=== PATIENT | female | born 1985 | race Caucasian/White ===

== ENCOUNTER → 2023-12-03 15:56 | Outpatient (CLI) | payer OTHER, MEDICAID, SELFPAY ==
[2023-12-03 16:41] LABS: Add Manual Diff / Slide Review NO; Basophils Absolute Auto 100 /uL (0-100); Basophils Percent Auto 0.6 % (0-2); Eosinophils Absolute Auto 100 /uL (0-450); Eosinophils Percent Auto 0.8 % (2-4); Hematocrit 40.3 % (36-46); Hemoglobin 13.6 g/dL (12.0-16.0); Lymphocytes Absolute Auto 1500 /uL (1100-4500); Lymphocytes Percent Auto 16.6 % (25-40); Mean Corpuscular HGB Conc 33.8 % (30-36); Mean Corpuscular Volume 88.7 fL (80-100); Monocytes Absolute Auto 700 /uL (0-900); Monocytes Percent Auto 7.7 % (3-14); Neutrophils Absolute Auto 6600 /uL (1500-7000); Neutrophils Percent Auto 74.3 % (50-75); Platelet Count 190 X10^3/uL (150-400); Red Blood Cell Count 4.54 X10^6/uL (4.0-5.2); Red Cell Distribution Width 13.5 % (11.6-14.8); White Blood Cell Count 8.9 X10^3/uL (4.5-11.0)
[2023-12-03 17:01] LABS: Alanine Aminotransferase 17 IU/L (<35); Albumin 4.2 g/dL (3.5-5.0); Albumin Globulin Ratio 1.3 (1.0-2.8); Alkaline Phosphatase 49 U/L (38-126); BUN Creatinine Ratio 14.5 (6-22); Bilirubin Total 0.4 mg/dL (0.2-1.3); Blood Urea Nitrogen 11 mg/dL (7-17); Calcium 9.1 mg/dL (8.4-10.2); Carbon Dioxide 21 mmol/L (22-32); Chloride 106 mmol/L (98-107); Estimated Glomerular Filt Rate > 60 mL/min (>60); Globulin 3.3 g/dL (1.7-4.1); Glucose 83 mg/dL (70-100); Potassium 3.5 mmol/L (3.4-5.1); Sodium 138 mmol/L (137-145); Total Protein 7.5 g/dL (6.3-8.2)
[2023-12-06 16:17] LABS: HEMOLYSIS < 15 (0-50)
[2023-12-06 16:18] LABS: Aspartate Aminotransferase 22 IU/L (14-36)
== END ==
LOC: LAB 15:58
PROVIDERS: PCP Family Medicine; Referring Provider Family Medicine; Visit Provider Family Medicine
DX: N83.209 Unspecified ovarian cyst, unspecified side (principal)
CPT/HCPCS: 36415; 80053; 85025

== ENCOUNTER → 2024-03-31 11:07 | Outpatient (CLI) | payer OTHER, MEDICAID, SELFPAY ==
[2024-03-31 11:52] LABS: Influenza A - CEPHEID Flu A NEGATIVE (NEGATIVE); Influenza B - CEPHEID Flu B NEGATIVE (NEGATIVE); Respiratory Syncytial Virus Negative (Negative)
[2024-03-31 11:53] LABS: COVID-19 CEPHEID 4-PLEX PCR Negative (Negative)
== END ==
PROVIDERS: PCP Family Medicine; Visit Provider Physician Assistant
DX: J34.89 Other specified disorders of nose and nasal sinuses (principal); R05.9 Cough, unspecified; R50.9 Fever, unspecified
CPT/HCPCS: 87635; 87400 ×2; 87420; 0241U; 87070

== ENCOUNTER → 2024-05-01 10:40 | Outpatient (CLI) | payer OTHER, MEDICAID, SELFPAY ==
[2024-05-02 04:54] LABS: RPR Screen Non Reactive (Non Reactive)
[2024-05-04 04:58] LABS: HIV 1 & 2 Ab/Ag 4th Gen Combo NEGATIVE (NEGATIVE); Hep C Virus Ab w/Reflex Quant NEGATIVE s/c (NEGATIVE)
== END ==
PROVIDERS: PCP Family Medicine; Referring Provider Family Medicine; Visit Provider Family Medicine
DX: R30.0 Dysuria (principal); N89.8 Other specified noninflammatory disorders of vagina; Z72.51 High risk heterosexual behavior
CPT/HCPCS: 36415; 86592; 86803; 87086; 87389; 87491; 87591

== ENCOUNTER → 2024-05-26 10:52 | Outpatient (CLI) | payer BC, OTHER, SELFPAY | PROVIDERS: PCP Family Medicine; Visit Provider Family Medicine | DX: N94.9 Unspecified condition associated with female genital organs and menstrual cycle (principal) | CPT/HCPCS: 81002; 87210 ==

== ENCOUNTER → 2024-06-09 07:44 | Outpatient (CLI) | payer BC, OTHER, MEDICAID, SELFPAY ==
--- NOTE | 2024-06-09 07:46 | DI.US.S_ITS ---
PROCEDURE: US PELVIC COMPLETE INDICATIONS: Ovarian cyst TECHNIQUE: Real-time scanning was performed of the pelvic organs, with image documentation. Additional endovaginal scanning was necessary due to incomplete visualization of the adnexal and endometrial structures by transabdominal scanning. COMPARISON: None. FINDINGS: Uterus: Uterus is anteverted and normal in size at 8.5 x 3.8 x 4.2 cm. The myometrium is homogeneous. The endometrium measures 2.5 mm combined thickness. Ovaries: The right ovary measures 8.3 x 3.8 x 5.5 cm, with a calculated ovarian volume of 90 cc. The left ovary measures 2.6 x 1.5 x 2.6 cm, with a calculated ovarian volume of 5.4 cc. Simple cysts are identified on the right measuring 2.8 x 3.6 x 3.6 cm and 5.2 x 3.3 x 4.6 cm. Other: No pathologic free abdominal or pelvic fluid. IMPRESSION: Simple right ovarian cysts. We strive to produce accurate, complete, and clear reports of imaging services. To assist us in improving patient care, this report was composed using standard report templates and voice recognition software. Therefore, it may contain abnormal punctuation, insertions and/or omissions. Occasional wrong-word or sound-alike substitutions may occur. Though we review the report and make efforts to correct it, we do recommend that the report be read carefully in proper context to recognize any text inaccuracies. Dictated by: Kelly Mark M.D. on 06/09/2024 at 14:07 Approved by: Kelly Mark M.D. on 06/09/2024 at 14:07
== END ==
PROVIDERS: PCP Family Medicine; Referring Provider Family Medicine; Visit Provider Family Medicine
DX: N83.291 Other ovarian cyst, right side (principal)
CPT/HCPCS: 76856

== ENCOUNTER 2024-06-28 17:11 | Emergency (ER) | payer BC, OTHER, MEDICAID, SELFPAY ==
[2024-06-28 17:24] VITALS: BP 123/71; PULSE 96; RESP 16; TEMP 36.9; O2SAT 100; BMI 24.2
[2024-06-28 18:19] LABS: Bacteria Urine None Seen; Culture Indicated Urine Cult Not Indicated; RBC Urine 0-1/HPF (0-5/HPF); Squamous Epithelial Cell Urine None Seen (0-5/HPF); Urine Volume 10mL (spun); WBC Urine 0-1/HPF (0-5/HPF)
[2024-06-28 18:21] LABS: Alanine Aminotransferase 14 IU/L (<35); Albumin Globulin Ratio 1.3 (1.0-2.8); Alkaline Phosphatase 46 U/L (38-126); Aspartate Aminotransferase 20 IU/L (14-36); BUN Creatinine Ratio 13.7 (6-22); Bilirubin Total 0.3 mg/dL (0.2-1.3); Blood Urea Nitrogen 13 mg/dL (7-17); Calcium 8.7 mg/dL (8.4-10.2); Carbon Dioxide 22 mmol/L (22-32); Chloride 110 mmol/L (98-107); Estimated Glomerular Filt Rate > 60 mL/min (>60); Globulin 3.1 g/dL (1.7-4.1); Glucose 66 mg/dL (70-100); HEMOLYSIS < 15 (0-50); Lipase 133 U/L (23-300); Potassium 3.7 mmol/L (3.4-5.1); Sodium 138 mmol/L (137-145); Total Protein 7.1 g/dL (6.3-8.2)
[2024-06-28 18:23] LABS: Add Manual Diff / Slide Review NO; Basophils Absolute Auto 100 /uL (0-100); Basophils Percent Auto 0.8 % (0-2); Eosinophils Absolute Auto 100 /uL (0-450); Eosinophils Percent Auto 1.1 % (2-4); Hemoglobin 12.4 g/dL (12.0-16.0); Lymphocytes Absolute Auto 1600 /uL (1100-4500); Mean Corpuscular HGB Conc 33.5 % (30-36); Mean Corpuscular Hemoglobin 29.9 PG (26-34); Mean Corpuscular Volume 89.4 fL (80-100); Monocytes Absolute Auto 500 /uL (0-900); Monocytes Percent Auto 8.3 % (3-14); Neutrophils Absolute Auto 4100 /uL (1500-7000); Neutrophils Percent Auto 64.8 % (50-75); Platelet Count 181 X10^3/uL (150-400); Red Blood Cell Count 4.14 X10^6/uL (4.0-5.2); Red Cell Distribution Width 13.4 % (11.6-14.8); White Blood Cell Count 6.3 X10^3/uL (4.5-11.0)
[2024-06-28 19:16] VITALS: O2SAT 99
[2024-06-28 19:17] VITALS: BP 119/65; PULSE 84; O2SAT 100
[2024-06-28 19:30] VITALS: BP 99/61; PULSE 78; O2SAT 100
[2024-06-28 20:00] VITALS: BP 112/64; PULSE 76; O2SAT 100
[2024-06-28 20:30] VITALS: BP 115/72; PULSE 66; O2SAT 100
--- NOTE | 2024-06-28 20:51 | ED.ABDPAIN ---
HPI - Abdominal Pain General Chief Complaint: Abdominal Pain Stated Complaint: rectal bleeding, abd pain Time Seen by Provider: 06/28/24 19:16 History of Present Illness HPI narrative: 38-year-old female presents for bright red blood in her stools since yesterday. States that she has a history of hemorrhoids. History of gastroparesis as well. Patient states is new to the area and does not have a GI doctor. Denies use of blood thinners Related Data Home Medications Medication Instructions Recorded Confirmed etonogestrel 68 mg subdermal subdermal 10/29/23 06/30/24 implant (Nexplanon) topiramate 100 mg tablet 100 mg PO BEDTIME Migraine 10/29/23 06/30/24 ondansetron 4 mg disintegrating 4 mg PO Q8H PRN 06/30/24 06/30/24 tablet sumatriptan 20 mg/actuation nasal 0 mg intranasal 06/30/24 06/30/24 spray ubrogepant 100 mg tablet (Ubrelvy) mg PO 06/30/24 06/30/24 Previous Rx's Medication Instructions Recorded fluticasone propionate 50 1 spray intranasal Q12H #16 grams 03/31/24 mcg/actuation nasal spray,suspension (Flonase Allergy Relief) nortriptyline 50 mg capsule 50 mg PO BEDTIME #30 caps 05/26/24 ceftriaxone 2 gram solution for 2 g IM DAILY infection #1 ea 07/02/24 injection doxycycline hyclate 100 mg capsule 100 mg PO BID #28 caps 07/02/24 metronidazole 500 mg tablet 500 mg PO BID #14 tabs 07/02/24 Allergies Allergy/AdvReac Type Severity Reaction Status Date / Time No Known Drug Allergies Allergy Verified 07/02/24 15:52 Patient History Medical History PTSD (post-traumatic stress disorder) (~2011) Depression (~2011) Pulmonary hypertension (~2020) Anxiety (~2011) Gastroparesis (~2013) GERD (gastroesophageal reflux disease) (~2011) Migraines (~2019) Ovarian cyst (~2016) Family History Father Heavy drinker COPD (chronic obstructive pulmonary disease) Diabetes mellitus Hypertension Mother Hypertension Hyperlipidemia Thyroid disorder Brother Mental health problem Enlarged heart Grandfather Cancer Grandfather Cancer Diabetes mellitus Grandmother Cancer Social History marital status: number of children: 1 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[employer]) other: moved from [place] Smoking Status: Former smoker Smoking Status: Former smoker Substance Use Type: does not use Exam Initial Vital Signs Initial Vital Signs: Vital Signs Temperature 98.4 F 06/28/24 17:24 Pulse Rate 96 H 06/28/24 17:24 Respiratory Rate 16 06/28/24 17:24 Blood Pressure 123/71 06/28/24 17:24 Pulse Oximetry 100 06/28/24 17:24 Oxygen Delivery Method Room Air 06/28/24 17:24 Const: Awake, alert, no acute distress, nontoxic appearing GI: Soft, nontender, nondistended, no rebound, 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 : 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, tone normal, no gross blood, small nonthrombosed hemorrhoid present Skin: Warm, Dry, intact, no rashes Neuro: AO x3, CN II-XII grossly intact, moves all extremities Course Orders Ordered: ED Orders 06/28/24 17:48 Urine Microscopic Stat 06/28/24 17:55 Complete Blood Count AUTO DIFF Stat Comprehensive Metabolic Panel Stat Lipase Stat Vital Signs Vital signs: Vital Signs - 8 hr 06/28/24 17:24 Temperature 98.4 F Pulse Rate 96 H Respiratory Rate 16 Blood Pressure 123/71 Pulse Oximetry 100 Oxygen Delivery Method Room Air MDM - Abdominal Pain Lab Data 06/28/24 17:55 06/28/24 17:55 Labs: Lab Results 06/28/24 06/28/24 Range/Units 17:48 17:55 WBC 6.3 (4.5-11.0) X10^3/uL RBC 4.14 (4.0-5.2) X10^6/uL Hgb 12.4 (12.0-16.0) g/dL Hct 37.0 (36-46) % MCV 89.4 (80-100) fL MCH 29.9 (26-34) PG MCHC 33.5 (30-36) % RDW 13.4 (11.6-14.8) % Plt Count 181 (150-400) X10^3/uL Neut % (Auto) 64.8 (50-75) % Lymph % (Auto) 25.0 (25-40) % [place] % (Auto) 8.3 (3-14) % Eos % (Auto) 1.1 L (2-4) % Baso % (Auto) 0.8 (0-2) % Neut # (Auto) 4100 (2196-8551) /uL Lymph # (Auto) 1600 (7437-4593) /uL [place] # (Auto) 500 (0-900) /uL Eos # (Auto) 100 (0-450) /uL Baso # (Auto) 100 (0-100) /uL Sodium 138 (137-145) mmol/L Potassium 3.7 (3.4-5.1) mmol/L Chloride 110 H (98-107) mmol/L Carbon Dioxide 22 (22-32) mmol/L BUN 13 (7-17) mg/dL Creatinine 0.95 (0.52-1.04) mg/dL Estimated GFR > 60 (>60) mL/min BUN/Creatinine Ratio 13.7 (6-22) Glucose 66 L (70-100) mg/dL Calcium 8.7 (8.4-10.2) mg/dL Total Bilirubin 0.3 (0.2-1.3) mg/dL AST 20 (14-36) IU/L ALT 14 (<35) IU/L Alkaline Phosphatase 46 (38-126) U/L Total Protein 7.1 (6.3-8.2) g/dL Albumin 4.0 (3.5-5.0) g/dL Globulin 3.1 (1.7-4.1) g/dL Albumin/Globulin Ratio 1.3 (1.0-2.8) Lipase 133 (23-300) U/L Urine RBC 0-1/hpf (0-5/HPF) Urine WBC 0-1/hpf (0-5/HPF) Ur Squamous Epith Cells None seen (0-5/HPF) Urine Bacteria None seen (None) Ur Culture Indicated? Cult not indicated Vol Urine Centrifuged 10ml (spun) Point of care testing: Point of Care Testing Test Results Negative Urine Dip Bedside Urine Glucose Negative Bedside Urine Bilirubin - Negative Bedside Urine Ketone - Negative Urine Specific [place] 1.015 Bedside Urine Occult Blood +++ Bedside Urine pH 6.0 Bedside Urine Protein - Negative Bedside Urine Urobilinogen - Negative Bedside Urine Nitrite - Negative Bedside Urine Leukocytes +/- 15 Esterase MDM Narrative Medical decision making narrative: Blood in stools since yesterday. Abdomen soft, no tenderness to palpation, rectal exam shows no gross blood. Hemoglobin 13.0. Based on patient's description of symptoms, benign exam, normal hemoglobin no indication for advanced imaging at this time. Patient given GI referral. Note for work provided Discharge Plan Departure Patient Disposition: Home Clinical Impression: Hemorrhoids, Bilateral lower abdominal pain Instructions: DI for Hemorrhoids, DI for Abdominal Pain-Adult Activity Restrictions/Additional Instructions: Your laboratory work today is normal, even though you are having bleeding in your stools your hemoglobin is normal. Take a daily stool softener and use [id number] preparation H if you are having rectal pain. A GI referral is in your paperwork. Prescriptions: No Action Nexplanon 68 mg implant subdermal topiramate 100 mg tablet 100 mg PO BEDTIME Patient Comments: 1 100mg before bed and 1/2 a tablet in the morning. fluticasone propionate [Flonase Allergy Relief] 50 mcg/actuation spray,suspension 1 spray intranasal Q12H Qty: 16 0RF Rx Instructions: administer into each nostril nortriptyline 50 mg capsule 50 mg PO BEDTIME Qty: 30 3RF sumatriptan 20 mg/actuation spray,non-aerosol 0 mg intranasal Ubrelvy 100 mg tablet PO ondansetron 4 mg tablet,disintegrating 4 mg PO Q8H PRN metronidazole 500 mg tablet 500 mg PO BID Qty: 14 0RF doxycycline hyclate 100 mg capsule 100 mg PO BID Qty: 28 0RF ceftriaxone 2 gram recon soln 2 g IM DAILY Qty: 1 0RF Rx Instructions: to be given IM times one dose today. Referrals: Charlie Medel MD [Non-Staff] - Heena Orona MD [Primary Care Provider] - Stand Alone Forms: Patient Portal/API, Work Release Note
== END 2024-06-28 21:09 | disposition home or self-care (01) ==
PROVIDERS: Emergency Medicine; Emergency Provider Emergency Medicine; PCP Family Medicine
DX: R10.32 Left lower quadrant pain (principal); R10.31 Right lower quadrant pain; K64.9 Unspecified hemorrhoids
CPT/HCPCS: 36415; 80053; 81003; 81015; 81025; 83690; 85025; 99283

== ENCOUNTER → 2024-06-30 14:12 | Outpatient (CLI) | payer BC, OTHER, MEDICAID, SELFPAY ==
[2024-06-30 15:01] LABS: Add Manual Diff / Slide Review NO; Basophils Absolute Auto 0 /uL (0-100); Basophils Percent Auto 0.6 % (0-2); Eosinophils Absolute Auto 100 /uL (0-450); Eosinophils Percent Auto 1.8 % (2-4); Hematocrit 38.6 % (36-46); Lymphocytes Absolute Auto 1500 /uL (1100-4500); Lymphocytes Percent Auto 23.1 % (25-40); Mean Corpuscular HGB Conc 33.6 % (30-36); Mean Corpuscular Hemoglobin 30.3 PG (26-34); Mean Corpuscular Volume 90.3 fL (80-100); Monocytes Absolute Auto 500 /uL (0-900); Monocytes Percent Auto 8.3 % (3-14); Neutrophils Absolute Auto 4200 /uL (1500-7000); Neutrophils Percent Auto 66.2 % (50-75); Platelet Count 172 X10^3/uL (150-400); Red Blood Cell Count 4.27 X10^6/uL (4.0-5.2); Red Cell Distribution Width 13.5 % (11.6-14.8); White Blood Cell Count 6.4 X10^3/uL (4.5-11.0)
[2024-06-30 15:39] LABS: Follicle Stimulating Hormone 4.18 mIU/mL; Luteinizing Hormone 11.5 mIU/mL
[2024-06-30 15:51] LABS: TSH w/ Reflex to FT4 1.36 uIU/mL (0.47-4.68)
== END ==
PROVIDERS: PCP Family Medicine; Referring Provider Family Medicine; Visit Provider Family Medicine
DX: N93.9 Abnormal uterine and vaginal bleeding, unspecified (principal); R10.2 Pelvic and perineal pain
CPT/HCPCS: 36415; 83001; 83002; 84146; 84443; 85025

== ENCOUNTER → 2024-06-30 16:13 | Outpatient (CLI) | payer BC, OTHER, MEDICAID, SELFPAY ==
--- NOTE | 2024-06-30 16:14 | DI.US.S_ITS ---
PROCEDURE: US PELVIC COMPLETE INDICATIONS: irregular vaginal bleeding w/abdominal pain TECHNIQUE: Real-time scanning was performed of the pelvic organs, with image documentation. Additional endovaginal scanning was necessary due to incomplete visualization of the adnexal and endometrial structures by transabdominal scanning. COMPARISON: [facility], US, US PELVIC COMPLETE, 06/09/2024, 8:00. FINDINGS: Uterus: Uterus is anteverted and normal in size at 7.7 x 2.8 x 5.0 cm. The myometrium is homogeneous. The endometrium measures 2 mm combined thickness. Cervical tenderness noted on examination. Ovaries: The right ovary measures 3.9 x 2.0 x 4.2 cm, with a calculated ovarian volume of 17 cc. The left ovary measures 2.9 x 2.0 x 2.7 cm, with a calculated ovarian volume of 8 cc. The ovaries have a normal sonographic appearance. Less than 12 follicles can be seen in each ovary. No adnexal masses are seen. Two dominant right-sided follicles. Other: No pathologic free abdominal or pelvic fluid. IMPRESSION: Cervical tenderness noted on examination, which may indicate infection. Otherwise, normal exam. We strive to produce accurate, complete, and clear reports of imaging services. To assist us in improving patient care, this report was composed using standard report templates and voice recognition software. Therefore, it may contain abnormal punctuation, insertions and/or omissions. Occasional wrong-word or sound-alike substitutions may occur. Though we review the report and make efforts to correct it, we do recommend that the report be read carefully in proper context to recognize any text inaccuracies. Dictated by: Champ Menezes M.D. on 06/30/2024 at 17:13 Approved by: Champ Menezes M.D. on 06/30/2024 at 17:15
== END ==
PROVIDERS: PCP Family Medicine; Referring Provider Family Medicine; Visit Provider Family Medicine
DX: N92.3 Ovulation bleeding (principal); N93.9 Abnormal uterine and vaginal bleeding, unspecified; R10.2 Pelvic and perineal pain
CPT/HCPCS: 36415; 76856; 83001; 83002; 84146; 84443; 85025

== ENCOUNTER 2025-01-13 17:00 | Outpatient (RCR) | payer OTHER, SELFPAY ==
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
--- NOTE | 2025-01-15 12:24 | PT-OP ANOTE ---
Pt called >24 hrs cancel today's appt, has to work.
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
== END 2025-03-23 09:52 | disposition home or self-care (01) ==
LOC: PHYS 17:00
PROVIDERS: Family Provider Family Medicine; PCP Family Medicine; Referring Provider Family Medicine; Visit Provider Family Medicine
DX: T14.8XXA Other injury of unspecified body region, initial encounter (principal); M54.9 Dorsalgia, unspecified; M79.605 Pain in left leg
CPT/HCPCS: 97110; 97140; 97162

== ENCOUNTER 2025-01-26 17:48 | Emergency (ER) | payer OTHER, SELFPAY ==
[2025-01-26 18:05] VITALS: BP 135/72; PULSE 115; RESP 18; TEMP 37.1; O2SAT 98; BMI 25.3
[2025-01-26 22:59] VITALS: BP 119/76; PULSE 91; RESP 19; TEMP 36.8; O2SAT 100
--- NOTE | 2025-01-26 22:59 | PC.NURSE ---
Pt reports fevers since Saturday. Current oral temperature is 98.3 F.
--- NOTE | 2025-01-27 00:26 | ED.WOUNDLAC ---
HPI - Wound/Laceration General Chief Complaint: Wound/Laceration Stated Complaint: right ring finger pain and fever on abx Time Seen by Provider: 01/27/25 00:26 History of Present Illness HPI narrative: Patient is a 39-year-old female history of PTSD anxiety depression comes into the ED from home for evaluation of pain to the right ring finger states it has been swollen itchy since Saturday. States she was given antibiotics on Saturday at the walk-in clinic, states it was Keflex. States that since then she is still having increased pain and fevers but denies any trauma. States that she still has a few days of her Keflex. She denies any other symptoms at this time. Related Data Home Medications Medication Instructions Recorded Confirmed etonogestrel 68 mg subdermal subdermal 10/29/23 01/24/25 implant (Nexplanon) ondansetron 4 mg disintegrating 4 mg PO Q8H PRN 06/30/24 01/24/25 tablet Botox Injections See Rx Instructions .Route .COMPLEX 09/14/24 01/24/25 topiramate 100 mg tablet See Rx Instructions PO .COMPLEX 09/14/24 01/24/25 Migraine ubrogepant 100 mg tablet (Ubrelvy) 100 mg PO ONCE PRN migraine 09/14/24 01/24/25 headache nortriptyline 50 mg capsule 25 mg PO DAILY 01/13/25 01/24/25 Previous Rx's Medication Instructions Recorded fluticasone propionate 50 1 spray intranasal Q12H #16 grams 03/31/24 mcg/actuation nasal spray,suspension (Flonase Allergy Relief) cyclobenzaprine 5 mg tablet 5 mg PO BEDTIME PRN muscle spasm 12/01/24 #20 tabs lorazepam 1 mg tablet 1 mg PO DAILY PRN anxiety #30 tabs 01/13/25 cephalexin 500 mg capsule 500 mg PO Q6H 10 days #40 caps 01/24/25 diclofenac sodium 75 mg 75 mg PO BID #90 tabs 01/25/25 tablet,delayed release methylprednisolone 4 mg tablets in See Rx Instructions PO .COMPLEX 01/27/25 a dose pack (Medrol (Robert)) #21 ea Allergies Allergy/AdvReac Type Severity Reaction Status Date / Time No Known Drug Allergies Allergy Verified 01/24/25 10:46 Review of Systems Review of Systems Narrative: General: Denies fever, chills, weight loss HEENT: Denies headache, eye drainage, eye irritation, head trauma, sore throat, voice change Cardiovascular: Denies any chest pain, palpitations, shortness of breath, tachycardia Respiratory: Denies any shortness of breath, cough, wheeze, stridor GI/: Denies any abdominal pain, nausea, vomiting, diarrhea, bright red blood per rectum, melanotic stools, urinary frequency, urinary retention, dysuria, hematuria MSK: Swelling pain to right ring finger Skin: Denies any rashes, lesions, discoloration Neuro: Denies any headache, lightheadedness, dizziness, fainting, weakness Psych: Denies SI/HI Patient History Medical History (Updated 01/27/25 @ 00:41 by Guzman Tatum DO) Insomnia, unspecified MDD (major depressive disorder), recurrent, in partial remission Generalized anxiety disorder with panic attacks PTSD (post-traumatic stress disorder) (~2011) Depression (~2011) Pulmonary hypertension (~2020) Anxiety (~2011) Gastroparesis (~2013) GERD (gastroesophageal reflux disease) (~2011) Migraines (~2019) Ovarian cyst (~2016) Family History Father Heavy drinker COPD (chronic obstructive pulmonary disease) Diabetes mellitus Hypertension Mother Hypertension Hyperlipidemia Thyroid disorder Brother Mental health problem Enlarged heart Grandfather Cancer Grandfather Cancer Diabetes mellitus Grandmother Cancer Social History marital status: number of children: 1 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[employer]) other: moved from [place] Smoking Status: Current every day smoker Smoking Status: Current every day smoker tobacco type: vaping Exam Narrative Exam Narrative: General: Cooperative, comfortable, well-developed, not in acute distress HEENT: Normocephalic, atraumatic, PERRLA, normal sclera, eyelids normal, Neck: Active full range of motion, atraumatic Chest: Normal to inspection, negative crepitus, no overlying erythema ecchymosis Respiratory: Normal respiratory effort, not in acute respiratory distress, clear to auscultation bilaterally negative cough, wheeze, tachypnea, rhonchi, rales Cardiology: Regular rate rhythm negative gallop, murmur, rubs GI/: Normal to inspection, soft, nonrigid, no tenderness to palpation, exam deferred MSK: Full range of active range of motion of all 4 extremities, atraumatic, bilateral upper extremities neurovascularly intact, there is no abnormality to the right ring finger. No cellulitis, ecchymosis erythema crepitus Skin: No rashes lesions noted Neuro: Alert awake oriented x3, moves all 4 extremities spontaneously, cranial nerves intact, able to answer all questions appropriately follows commands appropriately Psych: Cooperative, negative suicidal or homicidal ideations Initial Vital Signs Initial Vital Signs: Vital Signs Temperature 98.7 F 01/26/25 18:05 Pulse Rate 115 H 01/26/25 18:05 Respiratory Rate 18 01/26/25 18:05 Blood Pressure 135/72 01/26/25 18:05 Pulse Oximetry 98 01/26/25 18:05 Oxygen Delivery Method Room Air 01/26/25 18:05 Course Vital Signs Vital signs: Vital Signs - 8 hr 01/26/25 18:05 01/26/25 22:59 Temperature 98.7 F 98.3 F Pulse Rate 115 H 91 H Respiratory Rate 18 19 Blood Pressure 135/72 119/76 Pulse Oximetry 98 100 Oxygen Delivery Method Room Air Room Air MDM - Wound/Laceration Differential Diagnosis Differential diagnosis: Likely other (Paronychia, cellulitis, flexor tenosynovitis, herpetic too) MDM Narrative Medical decision making narrative: 39-year-old female without any significant past medical history presents for complaints of swelling pain to her right ring finger. 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 On exam she is neurovascularly intact negative Kanavel sign, there is no overlying erythema ecchymosis noted small dry patches possible symptoms more consistent with a dermatitis patient will be sent home with steroid pack. Instructed follow up with primary care/dermatology in outpatient setting she was given strict return precautions she verbalized understanding of this and agrees to being discharged home with outpatient follow up Discharge Plan Departure Patient Disposition: Home Clinical Impression: Finger pain Activity Restrictions/Additional Instructions: Please follow up with primary care Please read the discharge instructions sheet carefully and bring all papers to all doctor follow-up visits, as it may contain information that your doctor may want to see. Disease processes change and evolve, if your symptoms worsen or if you develop any new symptoms that are concerning to you please return for evaluation. Your evaluation today does not show any evidence of any life-threatening/serious illnesses requiring admission to the hospital or surgery. Please follow-up with your doctor for re-evaluation in approximately 1 day. Seek immediate medical attention for any worrisome symptoms. *If you do not have a primary care provider please contact the [facility] Resource line at [phone]. They will ask some questions about your medical history and help get you set up with a doctor in the community. Prescriptions: New methylprednisolone [Medrol (Robert)] 4 mg tablets,dose pack See Rx Instructions .ROUTE .COMPLEX Qty: 21 0RF Rx Instructions: orally per package directions No Action Nexplanon 68 mg implant subdermal topiramate 100 mg tablet See Rx Instructions PO .COMPLEX Patient Comments: 1 100mg before bed and 1/2 a tablet in the morning. Rx Instructions: orally; Botox Injections See Rx Instructions .ROUTE .COMPLEX Rx Instructions: Every 3 months for migraines cyclobenzaprine 5 mg tablet 5 mg PO BEDTIME PRN (Reason: muscle spasm) Qty: 20 0RF cephalexin 500 mg capsule 500 mg PO Q6H 10 Days Qty: 40 0RF fluticasone propionate [Flonase Allergy Relief] 50 mcg/actuation spray,suspension 1 spray intranasal Q12H Qty: 16 0RF Rx Instructions: administer into each nostril ondansetron 4 mg tablet,disintegrating 4 mg PO Q8H PRN Ubrelvy 100 mg tablet 100 mg PO ONCE PRN (Reason: migraine headache) lorazepam 1 mg tablet 1 mg PO DAILY PRN (Reason: anxiety) Qty: 30 0RF Rx Instructions: Start with half a tablet. Only to be used for panic/urgent anxiety symptoms nortriptyline 50 mg capsule 25 mg PO DAILY diclofenac sodium 75 mg tablet,delayed release (DR/EC) 75 mg PO BID Qty: 90 3RF Referrals: Heena Orona MD [Primary Care Provider] - Stand Alone Forms: Patient Portal/API/Survey
[2025-01-27 00:54] VITALS: BP 146/79; PULSE 90; RESP 16; TEMP 36.7; O2SAT 97
[2025-01-27] MEDS: predniSONE 20 MG TABLET PO (00:56)
== END 2025-01-27 01:00 | disposition home or self-care (01) ==
PROVIDERS: Emergency Provider Student in an Organized Health Care Education/Training Program; Family Provider Family Medicine; PCP Family Medicine
DX: M79.644 Pain in right finger(s) (principal); M79.89 Other specified soft tissue disorders
CPT/HCPCS: 99283

== ENCOUNTER → 2025-05-18 15:53 | Outpatient (CLI) | payer OTHER, SELFPAY ==
[2025-05-18 16:20] LABS: Add Manual Diff / Slide Review NO; Basophils Absolute Auto 100 /uL (0-100); Basophils Percent Auto 0.8 % (0-2); Eosinophils Absolute Auto 100 /uL (0-450); Eosinophils Percent Auto 0.8 % (2-4); Hematocrit 38.4 % (36-46); Hemoglobin 13.1 g/dL (12.0-16.0); Lymphocytes Absolute Auto 1300 /uL (1100-4500); Lymphocytes Percent Auto 16.1 % (25-40); Mean Corpuscular HGB Conc 34.2 % (30-36); Mean Corpuscular Volume 90.6 fL (80-100); Monocytes Absolute Auto 500 /uL (0-900); Monocytes Percent Auto 6.7 % (3-14); Neutrophils Absolute Auto 6100 /uL (1500-7000); Neutrophils Percent Auto 75.6 % (50-75); Platelet Count 201 X10^3/uL (150-400); Red Blood Cell Count 4.24 X10^6/uL (4.0-5.2); Red Cell Distribution Width 13.1 % (11.6-14.8)
[2025-05-18 16:48] LABS: Alanine Aminotransferase 20 IU/L (<35); Albumin 4.4 g/dL (3.5-5.0); Albumin Globulin Ratio 1.8 (1.0-2.8); Alkaline Phosphatase 48 U/L (38-126); Aspartate Aminotransferase 22 IU/L (14-36); BUN Creatinine Ratio 10.2 (6-22); Bilirubin Total 0.4 mg/dL (0.2-1.3); Blood Urea Nitrogen 10 mg/dL (7-17); Carbon Dioxide 25 mmol/L (22-32); Chloride 104 mmol/L (98-107); Estimated Glomerular Filt Rate > 60 mL/min (>60); Globulin 2.5 g/dL (1.7-4.1); Glucose 84 mg/dL (70-99); HEMOLYSIS < 15 (0-50); Potassium 4.1 mmol/L (3.4-5.1); Sodium 138 mmol/L (137-145); Total Protein 6.9 g/dL (6.3-8.2)
[2025-05-18 17:05] LABS: Prolactin 18.2 ng/mL (3.0-18.6); TSH w/ Reflex to FT4 0.99 uIU/mL (0.47-4.68)
== END ==
PROVIDERS: Family Provider Family Medicine; PCP Family Medicine; Referring Provider Family Medicine; Visit Provider Family Medicine
DX: N64.52 Nipple discharge (principal); N64.4 Mastodynia; M54.9 Dorsalgia, unspecified
CPT/HCPCS: 36415; 80053; 84146; 84443; 85025

== ENCOUNTER → 2025-06-14 08:50 | Outpatient (CLI) | payer OTHER, SELFPAY ==
--- NOTE | 2025-06-14 08:50 | DI.MG.S_ITS ---
MM diagnostic mammo BI, US breast RT limited: 06/14/2025 BI-RADS: 2 CLINICAL: 39-year old female for bilateral diagnostic mammogram and right diagnostic breast ultrasound. Tyrer-Cuzick lifetime risk of 31.7%. No personal or first- degree family history of breast cancer. Current reported family history of breast cancer: maternal aunt and paternal aunt. The patient reports pain (3 months) and milky/white nipple discharge (3 months) in the right breast. The patient had a prior right breast biopsy. PRIOR EXAMS: None. This is a baseline mammogram. MAMMOGRAPHY TECHNIQUE: 2D and 3D (tomosynthesis) digital mammographic views obtained, with additional images as needed for full coverage. Current study was also evaluated with a Computer Aided Detection (CAD) system. ULTRASOUND TECHNIQUE Real-time pisano scale imaging of the area of clinical interest was performed with image documentation. TARGETED Right Breast Ultrasound: Real-time ultrasound exam was performed focused to area of clinical and/or imaging concern. DENSITY C. The breasts are heterogeneously dense, which may obscure small masses. MAMMOGRAPHY FINDINGS Right (finding-1): Outer Central, Middle depth: A skin marker was placed in the area of concern, and no mammographic abnormalities are identified or to account for concern by the patient of pain/tenderness. No suspicious mass, asymmetry, microcalcification, or other abnormality seen. Right (finding-2): Central, Retroareolar, Far Anterior depth: There is no suspicious mammographic finding to account for concern by the patient of nipple discharge. No suspicious mass, asymmetry, microcalcification, or other abnormality seen. Right (finding-3): Inner Central, Anterior depth: A skin marker was placed in the area of concern, and no mammographic abnormalities are identified or to account for concern by the patient of pain/tenderness. No suspicious mass, asymmetry, microcalcification, or other abnormality seen. Right: Biopsy marker present on the right. There are no suspicious masses, calcifications, or other findings in the breast. Left: No suspicious mass, asymmetry, microcalcification, or other abnormality seen. ULTRASOUND FINDINGS Right (finding-1): Upper Outer at 9:30, 9 cm from nipple: Underlying the surface marker, there is no sonographic abnormality to account for concern by the patient of pain/tenderness. Right (finding-2): Central, Retroareolar: There is no sonographic abnormality to account for concern by the patient of nipple discharge. Right (finding-3): Inner at 3:00, 3 cm from nipple: Underlying the surface marker, there is no sonographic abnormality to account for concern by the patient of pain/tenderness. IMPRESSION: Right * No evidence of malignancy with benign findings. Left * No evidence of malignancy. RECOMMENDATIONS Right * Clinical follow-up is recommended, and further management of the patient's pain and nipple discharge should be based on the results of clinical evaluation. If worrisome symptoms persist or progress, further clinical evaluation should be considered. Bilateral * According to the Tyrer-Cuzick Risk Assessment Model, based on the information provided your patient has a greater than 20% lifetime risk for developing breast cancer. Consider supplemental screening with breast MRI and participation in a high risk screening program. * Annual screening mammography. COMMENTS: Findings and recommendations were conveyed to the patient during today's evaluation. OVERALL ASSESSMENT CATEGORY BI-RADS-2: Benign. The [employer] recommends annual screening mammography beginning at age 40 for women with average risk of breast cancer. ELECTRONICALLY SIGNED: Regla Hurtado M.D. on 06/14/2025 at 10:52:59 AM PT Interpreting Station ID: [id number]
== END ==
LOC: MAMMO 08:50
PROVIDERS: Family Provider Family Medicine; PCP Family Medicine; Referring Provider Family Medicine; Visit Provider Family Medicine
DX: N64.52 Nipple discharge (principal); N64.4 Mastodynia; R92.333 Mammographic heterogeneous density, bilateral breasts; Z80.3 Family history of malignant neoplasm of breast
CPT/HCPCS: 76642; 77066; G0279

== ENCOUNTER 2025-08-11 11:35 | Inpatient (IN) | payer OTHER, SELFPAY ==
[2025-08-11 12:04] VITALS: BP 115/70; PULSE 85; RESP 18; TEMP 36.5; O2SAT 98
--- NOTE | 2025-08-11 12:18 | DI.CT.S_ITS ---
PROCEDURE: CT ABDOMEN PELVIS W CON INDICATIONS: right lower quadrant pain/presumed PID TECHNIQUE: After the administration of intravenous contrast, axial sections acquired from the lung bases to the pubic symphysis. Coronal and sagittal reformats were performed. For radiation dose reduction, the following was used: automated exposure control, adjustment of mA and/or kV according to patient size. COMPARISON: [facility], , PELVIC COMPLETE, 08/03/2025, 20:17. FINDINGS: Image quality: Diagnostic. Lower Chest: No significant findings. ABDOMEN: Liver: No solid mass. Punctate hypodensities are too small to be accurately characterized but statistically likely represent cysts. No hepatic capsulitis. Gallbladder: No radiopaque gallstones or wall thickening. Biliary ducts: No biliary dilation. Pancreas: No ductal dilation. Spleen: Size is within normal limits. Adrenal Glands: No adrenal nodules. Kidneys and Ureters: No hydronephrosis. No solid mass. No complex renal cystic lesion which requires follow up. Stomach and Bowel: Normal colonic caliber, without significant wall thickening. Normal appendix. Peritoneum: No abnormal intraperitoneal fluid. No free air. Ventral Wall: No significant ventral hernia. Abdominal Nodes: No retroperitoneal or mesenteric adenopathy by size criteria. Vessels: Aorta and inferior vena cava are normal in size. PELVIS: Pelvic Organs: Right adnexal 4 cm follicle. No solid adnexal mass lesion.. The uterus is retroflexed. Bladder: No bladder wall thickening, accounting for underdistention. Pelvic Nodes: No enlarged lymph nodes. Miscellaneous: No inguinal hernias are seen. Bones: No aggressive osseous abnormality. IMPRESSION: Right adnexal simple fluid att of adnexal abscess or adjacent pelvic inflammation to suggest pelvic inflammatory disease. Recommend correlation with STI panel. Dictated by: Oc Ruiz M.D. on 08/11/2025 at 14:34 Approved by: Oc Ruiz M.D. on 08/11/2025 at 14:38
--- NOTE | 2025-08-11 12:30 | PM.GYNHP.1 ---
History of Present Illness History of Present Illness Reason for admission: pelvic pain and pelvic inflammatory disease (Presumptive diagnosis) Narrative: Jacquelyn is a 39-year-old , LMP 07/22/2025 presenting in ED follow-up from a visit on 08/03/2025 for right lower quadrant pain. At that time she was seen with a about a week history of sharp sudden onset right lower quadrant stabbing pain which began on or about 07/31/2025. She also at that time began having some light spotting which has been intermittent since that time. Evaluation in the emergency department on 08/03/2025 included a pelvic ultrasound which showed: FINDINGS: Uterus: Anteverted positioning. 7.3 x 5.5 x 3.5 cm. Endometrium measures 2-3 mm, within normal limits Suspect arcuate configuration. Nabothian cysts are present trace endocervical fluid. Ovaries: Moderately enlarged right ovary mid measuring 35 cc. There is a simple appearing 3.6 x 3.3 cm cyst. Left ovary is nonenlarged at 5 cc. Color and spectral flows are identified bilaterally in the ovarian parenchyma Other: Postvoid bladder residual is 80 cc. IMPRESSION: Moderately enlarged right ovary, with a simple appearing 3.6 x 3.3 cm cyst. This can predispose to torsion, which can be intermittent. At the time of exam, spectral vascular flows were identified in the ovarian parenchyma Suspect arcuate uterus. Nonthickened endometrium. Patient's pain is worse when she walks and has gradually spread to the left side of the pelvis although it is significantly less on the left. She also experiences pain with emptying her bladder and bowel movements. She was initiated on oral doxycycline and metronidazole but has had no significant benefit from those medications. Patient has a history of a similar episode about a year ago and was diagnosed at that time with pelvic inflammatory disease. Patient has a history of bacterial vaginosis but has no history of any sexually transmitted illness and she is in a monogamous marriage. Patient also reports on an off fever at home and she has a temperature of 100.9? orally here in the office today. [facility] Medical History Insomnia, unspecified MDD (major depressive disorder), recurrent, in partial remission Generalized anxiety disorder with panic attacks PTSD (post-traumatic stress disorder) (~2011) Depression (~2011) Pulmonary hypertension (~2020) Anxiety (~2011) Gastroparesis (~2013) GERD (gastroesophageal reflux disease) (~2011) Migraines (~2019) Ovarian cyst (~2016) Family History Father Heavy drinker COPD (chronic obstructive pulmonary disease) Diabetes mellitus Hypertension Mother Hypertension Hyperlipidemia Thyroid disorder Brother Mental health problem Enlarged heart Grandfather Cancer Grandfather Cancer Diabetes mellitus Grandmother Cancer Social History marital status: number of children: 1 household members: spouse and children 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) other: moved from [place] Smoking Status: Current some day smoker alcohol intake: never Meds Home Medications and Allergies Home Medications ?Medication ?Instructions ?Recorded ?Confirmed ?Type etonogestrel 68 mg subdermal 1 implant subdermal 10/29/23 08/11/25 History implant (Nexplanon) Botox Injections See Rx Instructions .Route .COMPLEX 09/14/24 08/11/25 History topiramate 100 mg tablet See Rx Instructions PO .COMPLEX 09/14/24 08/11/25 History Migraine nortriptyline 50 mg capsule 50 mg PO DAILY #90 caps 03/23/25 08/11/25 Rx metronidazole 500 mg tablet 500 mg PO BID #14 tabs 07/16/25 08/11/25 Rx lorazepam 1 mg tablet 1 mg PO DAILY PRN anxiety #30 tabs 07/19/25 08/11/25 Rx vilazodone 10 mg tablet 10 mg PO DAILY #30 tabs 07/19/25 08/11/25 Rx ondansetron 4 mg disintegrating 4 mg PO Q8H PRN nausea and 07/29/25 08/11/25 Rx tablet vomiting #30 tabs doxycycline hyclate 100 mg capsule 100 mg PO BID #28 caps 08/04/25 08/11/25 Rx ubrogepant 100 mg tablet (Ubrelvy) 100 mg PO 08/11/25 History Allergies Allergy/AdvReac Type Severity Reaction Status Date / Time No Known Drug Allergies Allergy Verified 08/06/25 12:59 Review of Systems Review of Systems Narrative: Problem-specific ROS positives included in HPI Exam Vital Signs (past 8 hours): - 08/11/25 12:04 Temperature 97.7 F Pulse Rate 85 Respiratory Rate 18 Blood Pressure 115/70 Pulse Oximetry 98 Oxygen Flow Rate 0 Oxygen Flow Rate 0 Const General: cooperative, comfortable, in distress (Due to abdominal/pelvic pain) and ill appearing Nutritional Appearance: average body habitus Orientation: alert and oriented x3 HENMT Head: normal to inspection, atraumatic and abrasion Ears: hearing grossly normal bilaterally Face and sinus: face symmetric Eyes General: appearance normal, both eyes and all related structures Conjunctivae: conjunctivae normal Sclera: sclerae normal EOM: EOM intact bilaterally Neck Neck: normal visual inspection Resp Effort & Inspection: normal respiratory effort and able to speak in complete sentences Auscultation: clear to auscultation bilaterally Cardio Rate: regular rate Rhythm: regular rhythm Heart Sounds: S1 normal, S2 normal and no murmurs GI Inspection: normal to inspection, non-distended and no scars Palpation: soft, no hepatosplenomegaly, guarding, No mass and tender (Marked direct tenderness, right lower quadrant/lower abdomen, mild rebound) Auscultation: normal bowel sounds Other: Positive psoas sign, positive heel tap External Female Exam: normal external appearance (Normal for age and parity) and other (No significant bleeding noted) Speculum Exam - Vagina: normal appearance of the vagina, abnormal vaginal discharge (Purulent discharge), no lesions and No vaginal bleeding Speculum Exam - Cervix: normal appearance of the cervix, cervical os open, abnormal cervical discharge (Muco-mucopurulent) and tender Bimanual Exam- Vagina & Uterus: normal palpation, tender and other (Difficult to assess due to extreme tenderness) Bimanual Exam- Adnexa, other: tender, cul-de-sac tenderness, apex supported and other (Difficult to assess due to extreme tenderness bilaterally) OB/External & Speculum: cervical os open and No vaginal bleeding Neuro Gait: antalgic Extrem General: no calf tenderness Psych Appearance: grossly normal Mental Status: mental status grossly normal Speech and Movement: speech and movement normal Mood: congruent mood Affect: normal affect Attitude: cooperative Thought Process: normal Thought Content: normal Judgment: judgment good Assessment & Plan Assessment and plan (1) Pelvic inflammatory disease: Status: Suspected (2) Pelvic pain: Status: Acute (3) Ovarian cyst: Qualifiers: Laterality: right Qualified Code(s): N83.201 - Unspecified ovarian cyst, right side Status: Acute Plan Although sudden onset is atypical, patient's exam and clinical symptoms are highly suggestive of pelvic inflammatory disease which is thus far unresponsive to oral antibiotic therapy. I believe it would be prudent to admit the patient for intravenous antibiotic therapy and if significant clinical improvement does not occur in the ensuing 36-48 hours, laparoscopy for diagnostic confirmation would be appropriate. Patient understands the rationale for IV antibiotic therapy and admission. Admission orders placed. Follow-up pelvic imaging will be ordered as well to rule out the formation of a tubo-ovarian abscess. Time-Based Coding :: 45 minutes spent with patient and on the chart (including review of chart, obtaining history, exam, reviewing outside data, placing orders, documenting exam and treatment plan, and counseling patient) on 08/11/2025. Quality VTE Deep Vein Thrombosis/Pulmonary Embolism Present on Admission: No
[2025-08-11 12:52] LABS: Add Manual Diff / Slide Review NO; Hematocrit 38.3 % (36-46); Hemoglobin 12.7 g/dL (12.0-16.0); Lymphocytes Absolute Auto 1100 /uL (1100-4500); Mean Corpuscular HGB Conc 33.2 % (30-36); Mean Corpuscular Hemoglobin 30.0 PG (26-34); Mean Corpuscular Volume 90.4 fL (80-100); Platelet Count 181 X10^3/uL (150-400)
[2025-08-11] MEDS: KETOROLAC 30 MG/ML VIAL IV ×2 (13:02→20:28)
[2025-08-11] MEDS: ONDANSETRON 4 MG/2 ML INJ IV ×3 (13:02→20:29)
[2025-08-11] MEDS: CLINDAMYCIN 900 MG/50 ML PIGGYBACK 50 MG IV ×2 (13:03→20:29)
[2025-08-11] MEDS: LACTATED RINGERS 1,000 ML 100 ML IV ×2 (13:07→20:29)
[2025-08-11] MEDS: GENTAMICIN 310 MG in SODIUM CHLORIDE 0.9% 100 ML 107.75 MG IV (14:08)
[2025-08-11 14:09] LABS: Estimated Glomerular Filt Rate > 60 mL/min (>60)
[2025-08-11 17:47] LABS: Appearance Urine UA CLEAR; Bilirubin Urine UA NEGATIVE (NEGATIVE); Color Urine UA YELLOW; Glucose Urine UA NEGATIVE (Negative); Ketones Urine UA NEGATIVE (NEGATIVE); Leukocyte Esterase Urine UA NEGATIVE (NEGATIVE); Nitrite Urine UA NEGATIVE (Negative); Occult Blood Urine UA NEGATIVE (Negative); Protein Urine UA NEGATIVE (Negative); Specific Gravity Urine UA <=1.005 (1.000-1.035); Urobilinogen Urine UA 0.2 E.U./dL (0.2)
[2025-08-11 17:53] LABS: pH Urine UA 7.5 (4.5-8.0)
[2025-08-11 17:55] LABS: Culture Indicated Urine Cult Not Indicated
[2025-08-11 18:00] VITALS: BP 105/58; PULSE 88; RESP 13; TEMP 36.8; O2SAT 96
[2025-08-11 20:08] VITALS: BP 110/62; PULSE 81; RESP 16; TEMP 36.7; O2SAT 98
[2025-08-11] MEDS: ZOLPIDEM 5 MG TABLET PO (20:40)
[2025-08-12 01:33] VITALS: BP 107/68; PULSE 67; RESP 15; TEMP 36.5; O2SAT 98
[2025-08-12] MEDS: ONDANSETRON 4 MG/2 ML INJ IV ×6 (01:39→20:33)
[2025-08-12] MEDS: KETOROLAC 30 MG/ML VIAL IV ×3 (04:36→20:33)
[2025-08-12] MEDS: CLINDAMYCIN 900 MG/50 ML PIGGYBACK 50 MG IV ×3 (04:36→20:31)
[2025-08-12] MEDS: LACTATED RINGERS 1,000 ML 100 ML IV ×2 (05:35→16:34)
[2025-08-12 08:00] VITALS: BP 96/49; PULSE 72; RESP 16; TEMP 36.6; O2SAT 98
[2025-08-12] MEDS: ACETAMINOPHEN 325 MG TABLET 650 MG PO (08:15)
--- NOTE | 2025-08-12 09:33 | P.PN_ITS ---
Subjective Subjective Date Patient Seen: 08/12/25 Time Patient Seen: 09:34 Interval history: Patient's pain is essentially unchanged overnight. She is however having more in the way of abdominal bloating and is more nauseated this morning but she is passing gas. It is also still painful for her to ambulate to the bathroom. Exam Vital Signs (past 8 hours): - 08/12/25 08:00 Temperature 97.8 F Pulse Rate 72 Respiratory Rate 16 Blood Pressure 96/49 L Pulse Oximetry 98 Oxygen Flow Rate 0 Oxygen Delivery Method Room Air Oxygen Flow Rate 0 Const General: cooperative, in distress (Due to pain) and ill appearing Nutritional Appearance: average body habitus Orientation: alert and oriented x3 HENMT Head: normal to inspection, atraumatic and abrasion Ears: hearing grossly normal bilaterally Face and sinus: face symmetric Eyes General: appearance normal, both eyes and all related structures Conjunctivae: conjunctivae normal Sclera: sclerae normal EOM: EOM intact bilaterally Neck Neck: normal visual inspection Resp Effort & Inspection: normal respiratory effort and able to speak in complete sentences Auscultation: clear to auscultation bilaterally Cardio Rate: regular rate Rhythm: regular rhythm Heart Sounds: S1 normal, S2 normal and no murmurs GI Inspection: normal to inspection and distended (Mild) Palpation: soft, no hepatosplenomegaly, No mass and tender (Marked in right lower quadrant, diffuse bilateral tenderness lower quadrant) Auscultation: hypoactive bowel sounds External Female Exam: other (No significant bleeding noted) Extrem General: no calf tenderness Psych Appearance: grossly normal Mental Status: mental status grossly normal Speech and Movement: speech and movement normal Mood: congruent mood Affect: normal affect Attitude: cooperative Thought Process: normal Thought Content: normal Judgment: judgment good Objective Labs 08/11/25 12:35 08/11/25 12:45 Labs: Laboratory Results - last 24 hr 08/11/25 08/11/25 08/11/25 12:35 12:45 16:55 WBC 5.5 RBC 4.23 Hgb 12.7 Hct 38.3 MCV 90.4 MCH 30.0 MCHC 33.2 RDW 13.6 Plt Count 181 Neut % (Auto) 68.8 Lymph % (Auto) 20.1 L [place] % (Auto) 8.5 Eos % (Auto) 1.7 L Baso % (Auto) 0.9 Neut # (Auto) 3800 Lymph # (Auto) 1100 [place] # (Auto) 500 Eos # (Auto) 100 Baso # (Auto) 100 Creatinine 0.88 Estimated GFR > 60 Urine Color Yellow Urine Appearance Clear Urine pH 7.5 Ur Specific [place] <=1.005 Urine Protein Negative Urine Glucose (UA) Negative Urine Ketones Negative Urine Occult Blood Negative Urine Nitrate Negative Urine Bilirubin Negative Urine Urobilinogen 0.2 Ur Leukocyte Esterase Negative Urine RBC None seen Urine WBC None seen Ur Squamous Epith Cells 0-1 /hpf Amorphous Sediment 1+ Urine Bacteria Occasional (0-1) Ur Culture Indicated? Cult not indicated Vol Urine Centrifuged 10ml (spun) Random Gentamicin 08/11/25 22:57 WBC RBC Hgb Hct MCV MCH MCHC RDW Plt Count Neut % (Auto) Lymph % (Auto) [place] % (Auto) Eos % (Auto) Baso % (Auto) Neut # (Auto) Lymph # (Auto) [place] # (Auto) Eos # (Auto) Baso # (Auto) Creatinine Estimated GFR Urine Color Urine Appearance Urine pH Ur Specific [place] Urine Protein Urine Glucose (UA) Urine Ketones Urine Occult Blood Urine Nitrate Urine Bilirubin Urine Urobilinogen Ur Leukocyte Esterase Urine RBC Urine WBC Ur Squamous Epith Cells Amorphous Sediment Urine Bacteria Ur Culture Indicated? Vol Urine Centrifuged Random Gentamicin 3.1 PFSH Medical History Insomnia, unspecified MDD (major depressive disorder), recurrent, in partial remission Generalized anxiety disorder with panic attacks PTSD (post-traumatic stress disorder) (~2011) Depression (~2011) Pulmonary hypertension (~2020) Anxiety (~2011) Gastroparesis (~2013) GERD (gastroesophageal reflux disease) (~2011) Migraines (~2019) Ovarian cyst (~2016) Family History Father Heavy drinker COPD (chronic obstructive pulmonary disease) Diabetes mellitus Hypertension Mother Hypertension Hyperlipidemia Thyroid disorder Brother Mental health problem Enlarged heart Grandfather Cancer Grandfather Cancer Diabetes mellitus Grandmother Cancer Social History marital status: number of children: 1 household members: spouse and children 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) other: moved from [place] Smoking Status: Current some day smoker alcohol intake: never Assessment & Plan Assessment and plan (1) Pelvic inflammatory disease: Status: Suspected (2) Pelvic pain: Status: Acute (3) Ovarian cyst: Qualifiers: Laterality: right Qualified Code(s): N83.201 - Unspecified ovarian cyst, right side Status: Acute Plan Lack of clinical response to parenteral antibiotic therapy thus far is concerning but patient has not yet had adequate time to expect a response. Will re-evaluate later this afternoon and request General surgery consult in anticipation of possible diagnostic laparoscopy tomorrow if her symptoms have not improved significantly. Time-Based Coding :: [TOTAL MINUTES] spent with patient and on the chart (including review of chart, obtaining history, exam, reviewing outside data, placing orders, documenting exam and treatment plan, and counseling patient) on [DATE]. Quality VTE Deep Vein Thrombosis/Pulmonary Embolism Present on Admission: No IH PROFEE Development Scientist Document charge(s): Yes
[2025-08-12] MEDS: MAG HYDROX/ALUM/SIMETH 30 ML UDC PO (10:39)
--- NOTE | 2025-08-12 11:19 | CM.DANOTE ---
DCP Assessment note pt is a 39yo F with PID/likely ovarian abscess. direct admit from OBGYN appt. per surgeon note, plan for 36-72hrs of IV abx and if does not improve will plan possible diagnostic laparoscopy, potentially for tomorrow? per RN/chart review, pain not very well controlled. pt indep with ambulation. COUNCILPERSON entered room and introduced self and role. pt lives in [place] with spouse, works for [employer]. COUNCILPERSON provided initial work excuse letter. pt will need final one at dc with any limitations. pt already started FML process with PCP. Pt denies other DCP/CM needs at this time P: either will improve with abx vs will plan for surgical intervention. no identified barriers to safe dc home at this time. will continue to follow as needed in case any should arise TIM Chong Discharge Planning/Care Management CM Discharge Assessment Start: 08/11/25 11:50 Freq: Status: Active Protocol: Document 08/12/25 11:18 (Rec: 08/12/25 11:19 [id number]) Discharge Planning Assessment Assigned Discharge TIM Sales Sliver Machine Operator Provider Heena Orona [facility] [employer] DPOA/Assigned Eriberto spouse Designee Name Contact Information [phone] Advance Directives? No History Provided By Patient,Medical Record Prior Living House Arrangements Household Members spouse,children Type of Drives own vehicle transporation used prior to admit Independent with ADL Yes 's Is patient alert and Yes oriented? Discharge Plan Home Referrals Initiated None needed Whiteboard Updated Yes in Patient Room with name and ext. # of Records Analyst Review Status In Process Please Provide Date 08/12/25 Initial DC Assessment Was Performed Next Review Type Continued Stay Review
--- NOTE | 2025-08-12 12:22 | P.HP_ITS ---
History of Present Illness History of Present Illness Date Patient Seen: 08/12/25 Time Patient Seen: 12:30 Date of Onset of Symptoms: 07/31/25 Chief complaint: PID Narrative: Patient is a 39-year-old white female admitted to the hospital from the ER with right lower quadrant pain which started on 07/31/2025 in the right lower quadrant became worse on 08/03/2025 underwent an ultrasound showing a 3.6 x 3.3 cm right ovarian cyst with possible fallopian tube cyst patient states that the pain is sharp stabbing constant without any radiation this been going on for 12 days. Patient has had nausea without any vomiting she states she is having soft stools without any melena she has had vaginal spotting but denies any rectal bleeding patient underwent a CT scan which shows normal gallbladder and appendix which is very small but a very long redundant colon with sigmoid colon actually going up into the epigastrium patient has a right ovarian cyst but no acute inflammatory processes noted. Patient states she has had problems with her bowels has been worked up for gastroparesis even underwent an EGD colonoscopy in 2014 which showed nothing for bowel problems. Admitting laboratory shows WBC of 5.5 hemoglobin is 12.7 hematocrit is 38.3 platelets a 181,000 CMP done on 08/11 shows a sodium of 138 potassium 4.2 chloride 108 bicarb is 19 BUN of 10 creatinine is 0.7 random blood sugar is 92 normal LFTs. I was asked see the patient for surgical consult. Allergies: NKDA Medications: Botox injections, doxycycline, nexplanon implant, lorazepam, metronidazole, nortriptyline, Zofran, topiramate,ubrelvy,vilazodone Past medical history: Corrective lenses, few missing teeth, anxiety, depression, panic attacks, post traumatic stress disorder, migraines, 1 para 1 ab 0, hypertension, GERD, gastroparesis, history of ovarian cyst, history of a Betsy-Espinoza tear treated with transfusions. Patient denies any other heart lungs digestive musculoskeletal neurological seizure disorder psychiatric problems risks were Infectious diseases HIV or AIDS. Past surgical history: History of EGDs, EGD colonoscopy in 2015 for bowel disorder Social history: Works at the [employer], history of tobacco use less than 1/2 pack per day x2 years. Seven years ago, vaping x1 year, denies any alcohol or recreational drug usage. Vitals: Temperature is 97.8? pulse 72 respirations 16 BP is 96/46 SaO2 is 98% on room air. Patient is 5 ft 3 in tall 169 lb Head is normocephalic eyes PERRLA EOMI is intact nares are clear oropharyngeal cavity is moderate repair some gingivitis and gumline retraction several missing teeth heart regular rate and rhythm without murmurs. Lungs are clear to auscultation no rales rhonchi or wheezes noted moderate inspiratory and expiratory effort. Abdomen is soft nondistended with good active bowel sounds negative Chris's [place]'s Honeycutt- Carbajal's Voss's McBurney's no masses or peritoneal signs. Musculoskeletal moderate muscle tone and strength equal bilaterally no gross deficits elicited. Impression: Right lower quadrant pain of 12 days' duration with ultrasound and CT scan showing normal appendix right ovarian cyst and fallopian tube cyst. CT showing very long redundant colon with sigmoid colon going into the epigastrium no signs of volvulus History of bowel problems for many years etiology unknown. Gastroparesis, History of a Betsy-Espinoza tear many years ago WBC is 5.5 Plan: Discussed the findings with the patient may need further bowel workup discussed with Dr. Patrick the findings he is planning on doing a laparoscopy versus robot to evaluate the pelvis we will be available to see but the patient is negative may warrant bowel motility studies possible trial of Reglan we will follow patient closely all questions were answered patient's satisfaction. [facility] Medical History Insomnia, unspecified MDD (major depressive disorder), recurrent, in partial remission Generalized anxiety disorder with panic attacks PTSD (post-traumatic stress disorder) (~2011) Depression (~2011) Pulmonary hypertension (~2020) Anxiety (~2011) Gastroparesis (~2013) GERD (gastroesophageal reflux disease) (~2011) Migraines (~2019) Ovarian cyst (~2016) Family History Father Heavy drinker COPD (chronic obstructive pulmonary disease) Diabetes mellitus Hypertension Mother Hypertension Hyperlipidemia Thyroid disorder Brother Mental health problem Enlarged heart Grandfather Cancer Grandfather Cancer Diabetes mellitus Grandmother Cancer Social History marital status: number of children: 1 household members: spouse and children 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) other: moved from [place] Smoking Status: Current some day smoker alcohol intake: never Meds Home Medications and Allergies Home Medications ?Medication ?Instructions ?Recorded ?Confirmed ?Type etonogestrel 68 mg subdermal 1 implant subdermal .q 3 years 10/29/23 08/11/25 History implant (Nexplanon) Botox Injections See Rx Instructions .Route . COMPLEX 09/14/24 08/11/25 History topiramate 100 mg tablet See Rx Instructions PO .COMP RAMON 09/14/24 08/11/25 History Migraine nortriptyline 50 mg capsule 50 mg PO DAILY #90 caps 08/11/25 Rx metronidazole 500 mg tablet 500 mg PO BID #14 tabs 08/11/25 Rx lorazepam 1 mg tablet 1 mg PO DAILY PRN anxiety #3 0 tabs 07/19/25 08/11/25 Rx vilazodone 10 mg tablet 10 mg PO DAILY #30 tabs 07/0208/11/25 Rx ondansetron 4 mg disintegrating 4 mg PO Q8H PRN nausea and 07/29/25 08/11/25 Rx tablet vomiting #30 tabs doxycycline hyclate 100 mg capsule 100 mg PO BID #28 c aps 08/04/25 08/11/25 Rx ubrogepant 100 mg tablet (Ubrelvy) 100 mg PO PRN PRN m igraine headache 08/11/25 08/11/25 History Allergies Allergy/AdvReac Type Severity Reaction Status Date / Time No Known Drug Allergies Allergy Verified 08/06/25 12:59 Exam Vital Signs (past 8 hours): - 08/12/25 08:00 Temperature 97.8 F Pulse Rate 72 Respiratory Rate 16 Blood Pressure 96/49 L Pulse Oximetry 98 Oxygen Flow Rate 0 Oxygen Delivery Method Room Air Oxygen Flow Rate 0 Objective Labs 08/11/25 12:35 08/11/25 12:45 Labs: Laboratory Results - last 24 hr 08/11/25 08/11/25 08/11/25 12:35 12:45 16:55 WBC 5.5 RBC 4.23 Hgb 12.7 Hct 38.3 MCV 90.4 MCH 30.0 MCHC 33.2 RDW 13.6 Plt Count 181 Neut % (Auto) 68.8 Lymph % (Auto) 20.1 L [place] % (Auto) 8.5 Eos % (Auto) 1.7 L Baso % (Auto) 0.9 Neut # (Auto) 3800 Lymph # (Auto) 1100 [place] # (Auto) 500 Eos # (Auto) 100 Baso # (Auto) 100 Creatinine 0.88 Estimated GFR > 60 Urine Color Yellow Urine Appearance Clear Urine pH 7.5 Ur Specific [place] <=1.005 Urine Protein Negative Urine Glucose (UA) Negative Urine Ketones Negative Urine Occult Blood Negative Urine Nitrate Negative Urine Bilirubin Negative Urine Urobilinogen 0.2 Ur Leukocyte Esterase Negative Urine RBC None seen Urine WBC None seen Ur Squamous Epith Cells 0-1 /hpf Amorphous Sediment 1+ Urine Bacteria Occasional (0-1) Ur Culture Indicated? Cult not indicated Vol Urine Centrifuged 10ml (spun) Random Gentamicin 08/11/25 22:57 WBC RBC Hgb Hct MCV MCH MCHC RDW Plt Count Neut % (Auto) Lymph % (Auto) [place] % (Auto) Eos % (Auto) Baso % (Auto) Neut # (Auto) Lymph # (Auto) [place] # (Auto) Eos # (Auto) Baso # (Auto) Creatinine Estimated GFR Urine Color Urine Appearance Urine pH Ur Specific [place] Urine Protein Urine Glucose (UA) Urine Ketones Urine Occult Blood Urine Nitrate Urine Bilirubin Urine Urobilinogen Ur Leukocyte Esterase Urine RBC Urine WBC Ur Squamous Epith Cells Amorphous Sediment Urine Bacteria Ur Culture Indicated? Vol Urine Centrifuged Random Gentamicin 3.1 Assessment & Plan Time-Based Coding :: [TOTAL MINUTES] spent with patient and on the chart (including review of chart, obtaining history, exam, reviewing outside data, placing orders, documenting exam and treatment plan, and counseling patient) on [DATE]. Quality VTE Deep Vein Thrombosis/Pulmonary Embolism Present on Admission: No IH PROFEE Wrapper Stemmer Operator Document charge(s): Yes
[2025-08-12 13:59] VITALS: BP 93/56; PULSE 74; RESP 13; TEMP 36.8; O2SAT 96
[2025-08-12] MEDS: GENTAMICIN 310 MG in SODIUM CHLORIDE 0.9% 100 ML 107.75 MG IV (14:26)
[2025-08-12 14:35] LABS: Hematocrit 33.5 % (36-46); Hemoglobin 11.3 g/dL (12.0-16.0); Mean Corpuscular HGB Conc 33.9 % (30-36); Mean Corpuscular Hemoglobin 30.7 PG (26-34); Mean Corpuscular Volume 90.7 fL (80-100); Platelet Count 156 X10^3/uL (150-400)
[2025-08-12 14:52] LABS: Blood Urea Nitrogen 15 mg/dL (7-17); Calcium 8.4 mg/dL (8.4-10.2); Carbon Dioxide 27 mmol/L (22-32); Chloride 105 mmol/L (98-107); Estimated Glomerular Filt Rate > 60 mL/min (>60); Glucose 83 mg/dL (70-99); HEMOLYSIS < 15 (0-50); Potassium 4.0 mmol/L (3.4-5.1); Sodium 135 mmol/L (137-145)
[2025-08-12 14:55] LABS: Add Manual Diff / Slide Review NO; Lymphocytes Absolute Auto 1400 /uL (1100-4500)
--- NOTE | 2025-08-12 17:22 | P.PN_ITS ---
Subjective Subjective Date Patient Seen: 08/12/25 Time Patient Seen: 17:23 Interval history: Patient's pain is unchanged and may actually be slightly worse than upon admission. She is complaining of more abdominal distention but remains afebrile with a normal white count. Surgical consultation earlier today appreciated. Exam Vital Signs (past 8 hours): - 08/12/25 13:59 Temperature 98.2 F Pulse Rate 74 Respiratory Rate 13 Blood Pressure 93/56 L Pulse Oximetry 96 Oxygen Flow Rate 0 Oxygen Delivery Method Room Air Oxygen Flow Rate 0 Narrative Exam Narrative: Exam essentially unchanged from earlier this morning Objective Labs 08/12/25 14:21 08/12/25 14:21 Labs: Laboratory Results - last 24 hr 08/11/25 08/11/25 08/12/25 16:55 22:57 14:21 WBC 4.9 RBC 3.69 L Hgb 11.3 L Hct 33.5 L MCV 90.7 MCH 30.7 MCHC 33.9 RDW 13.5 Plt Count 156 Neut % (Auto) 58.7 Lymph % (Auto) 28.4 [place] % (Auto) 9.5 Eos % (Auto) 2.8 Baso % (Auto) 0.6 Neut # (Auto) 2900 Lymph # (Auto) 1400 [place] # (Auto) 500 Eos # (Auto) 100 Baso # (Auto) 0 Total Counted Cancelled Seg Neutrophils % Cancelled Band Neutrophils % Cancelled Lymphocytes % (Manual) Cancelled Atypical Lymphs % Cancelled Monocytes % (Manual) Cancelled Eosinophils % (Manual) Cancelled Basophils % (Manual) Cancelled Metamyelocytes % Cancelled Myelocytes % Cancelled Promyelocytes % Cancelled Blast Cells % Cancelled Neutrophils # (Manual) Cancelled Nucleated RBCs Cancelled Differential Comment Cancelled Hypersegmented Neuts Cancelled Reactive Lymphocytes Cancelled Plasma Cells Cancelled Smudge Cells Cancelled Other Cell Type Cancelled Toxic Granulation Cancelled Toxic Vacuolation Cancelled Dohle Bodies Cancelled Elier Rods Cancelled WBC Morphology Comment Cancelled Platelet Estimate Cancelled Clumped Platelets Cancelled Plt Morphology Comment Cancelled RBC Morphology Cancelled Dimorphic RBCs Cancelled Polychromasia Cancelled Hypochromasia Cancelled Poikilocytosis Cancelled Basophilic Stippling Cancelled Anisocytosis Cancelled Microcytosis Cancelled Macrocytosis Cancelled Spherocytes Cancelled Pappenheimer Bodies Cancelled Sickle Cells Cancelled Target Cells Cancelled Tear Drop Cells Cancelled Ovalocytes Cancelled Stomatocytes Cancelled Helmet Cells Cancelled [place] Bodies Cancelled [place] Rings Cancelled Reid Cells Cancelled Acanthocytes (Spur) Cancelled Rouleaux Cancelled Schistocytes Cancelled Sodium 135 L Potassium 4.0 Chloride 105 Carbon Dioxide 27 BUN 15 Creatinine 0.94 Estimated GFR > 60 BUN/Creatinine Ratio 16.0 Glucose 83 Calcium 8.4 Urine Color Yellow Urine Appearance Clear Urine pH 7.5 Ur Specific Smoot <=1.005 Urine Protein Negative Urine Glucose (UA) Negative Urine Ketones Negative Urine Occult Blood Negative Urine Nitrate Negative Urine Bilirubin Negative Urine Urobilinogen 0.2 Ur Leukocyte Esterase Negative Urine RBC None seen Urine WBC None seen Ur Squamous Epith Cells 0-1 /hpf Amorphous Sediment 1+ Urine Bacteria Occasional (0-1) Ur Culture Indicated? Cult not indicated Vol Urine Centrifuged 10ml (spun) Random Gentamicin 3.1 PFSH Medical History Insomnia, unspecified MDD (major depressive disorder), recurrent, in partial remission Generalized anxiety disorder with panic attacks PTSD (post-traumatic stress disorder) (~2011) Depression (~2011) Pulmonary hypertension (~2020) Anxiety (~2011) Gastroparesis (~2013) GERD (gastroesophageal reflux disease) (~2011) Migraines (~2019) Ovarian cyst (~2016) Family History Father Heavy drinker COPD (chronic obstructive pulmonary disease) Diabetes mellitus Hypertension Mother Hypertension Hyperlipidemia Thyroid disorder Brother Mental health problem Enlarged heart Grandfather Cancer Grandfather Cancer Diabetes mellitus Grandmother Cancer Social History marital status: number of children: 1 household members: spouse and children 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[employer]) other: moved from [place] Smoking Status: Current some day smoker alcohol intake: never Assessment & Plan Assessment and plan (1) Pelvic inflammatory disease: Status: Suspected (2) Pelvic pain: Status: Acute (3) Ovarian cyst: Qualifiers: Laterality: right Qualified Code(s): N83.201 - Unspecified ovarian cyst, right side Status: Acute Plan It seems unlikely that the patient has pelvic inflammatory disease as the source of her right lower quadrant/pelvic pain. Oral and now IV antibiotic therapy has not been helpful and instead patient's pain symptoms seem to be worsening slightly despite bedrest and pain relief. I believe it is time to surgically explore the patient's abdomen laparoscopically with further decisions regarding evaluation and treatment at that time defined by the intraoperative findings. Patient is accepting of this course of action but is understandably disappointed that surgery is going to be required. Will consult further general surgery but plan to diagnostic laparoscopy in the a.m. with further decisions regarding surgical intervention based on findings at surgery. Time-Based Coding :: 15 minutes spent with patient and on the chart (including review of chart, obtaining history, exam, reviewing outside data, placing orders, documenting exam and treatment plan, and counseling patient) on 08/12/2025. Quality VTE Deep Vein Thrombosis/Pulmonary Embolism Present on Admission: No PROFEE Rfid Systems Architect Document charge(s): Yes
[2025-08-12 18:54] VITALS: BP 105/63; PULSE 75; RESP 12; TEMP 36.6; O2SAT 97
--- NOTE | 2025-08-12 19:23 | PC.NURSE ---
Patient hypotensive this afternoon, MD notified and per orders given 1 liter LR bolus, with IVF LR rate increased to 125ml/hr at 1430
[2025-08-13] VITALS (19 sets, daily range): BP systolic 85–131; BP diastolic 48–69; PULSE 68–96; RESP 11–18; TEMP 36.4–36.9; O2SAT 96–100
[2025-08-13] MEDS: LACTATED RINGERS 1,000 ML 1000 ML IV (00:50)
--- NOTE | 2025-08-13 01:00 | PC.NURSE ---
Addendum entered by Fany Garnett RN 08/13/25 06:08: 06:00- BP 92/51, HR 83. Dr. Patrick aware and stated that he will be rounding on her soon. Addendum entered by Fany Garnett RN 08/13/25 05:14: 04:30- Pt blood pressure 85/48, HR 48. Received order for Dr. Patrick for 500mL LR bolus, stat CBC, type and screen, and HCG. Addendum entered by Fany Garnett RN 08/13/25 03:21: Prior to bolus, BP was 76/39. After bolus complete, BP 99/56, HR 71 Original Note: Patient hypotensive, received order to do 1L LR bolus, and continue IVF @ 125/hr.
[2025-08-13] MEDS: LACTATED RINGERS 1,000 ML 100 ML IV ×2 (02:26→16:21)
[2025-08-13] MEDS: ONDANSETRON 4 MG/2 ML INJ IV ×4 (02:30→21:17)
[2025-08-13] MEDS: CLINDAMYCIN 900 MG/50 ML PIGGYBACK 50 MG IV (04:20)
[2025-08-13] MEDS: KETOROLAC 30 MG/ML VIAL IV ×3 (04:21→21:16)
[2025-08-13] MEDS: LACTATED RINGERS 500 ML 1000 ML IV (04:45)
[2025-08-13 04:56] LABS: Add Manual Diff / Slide Review NO; Hematocrit 30.9 % (36-46); Hemoglobin 10.4 g/dL (12.0-16.0); Lymphocytes Absolute Auto 1600 /uL (1100-4500); Mean Corpuscular HGB Conc 33.7 % (30-36); Mean Corpuscular Hemoglobin 30.4 PG (26-34); Mean Corpuscular Volume 90.0 fL (80-100); Platelet Count 148 X10^3/uL (150-400)
[2025-08-13 05:07] LABS: Alanine Aminotransferase 27 IU/L (<35); Albumin 2.7 g/dL (3.5-5.0); Albumin Globulin Ratio 1.1 (1.0-2.8); Alkaline Phosphatase 41 U/L (38-126); Blood Urea Nitrogen 13 mg/dL (7-17); Calcium 8.0 mg/dL (8.4-10.2); Carbon Dioxide 25 mmol/L (22-32); Chloride 106 mmol/L (98-107); Estimated Glomerular Filt Rate > 60 mL/min (>60); Globulin 2.4 g/dL (1.7-4.1); Glucose 106 mg/dL (70-99); HEMOLYSIS < 15 (0-50); Lactate (Lactic Acid) 0.9 mmol/L (0.7-2.1); Potassium 3.5 mmol/L (3.4-5.1); Sodium 134 mmol/L (137-145); Total Protein 5.1 g/dL (6.3-8.2)
[2025-08-13 05:24] LABS: HCG Quantitative /Beta subunit < 2.39 mIU/mL
--- NOTE | 2025-08-13 07:46 | PM.PN.IH.1 ---
Subjective Subjective Date Patient Seen: 08/13/25 Time Patient Seen: 07:46 Interval history: RLQ remains unchanged as does her current examination. She is NPO in anticipation of surgery later this morning. Exam Vital Signs (past 8 hours): - 08/13/25 02:00 08/13/25 04:20 08/13/25 05:31 Temperature 98.1 F Pulse Rate 71 88 73 Respiratory Rate 18 Blood Pressure 99/56 L 85/48 L 88/59 L Pulse Oximetry 97 Oxygen Flow Rate 0 08/13/25 06:00 Temperature 98 F Pulse Rate 83 Respiratory Rate 16 Blood Pressure 92/51 L Pulse Oximetry 100 Oxygen Flow Rate 0 Oxygen Delivery Method Room Air Oxygen Flow Rate 0 Narrative Exam Narrative: No change from admission, pain/tenderness in right lower quadrant perhaps slightly increased Objective Labs 08/13/25 04:42 08/13/25 21:06 Labs: Laboratory Results - last 24 hr 08/12/25 08/13/25 14:21 04:42 WBC 4.9 5.2 RBC 3.69 L 3.44 L Hgb 11.3 L 10.4 L Hct 33.5 L 30.9 L MCV 90.7 90.0 MCH 30.7 30.4 MCHC 33.9 33.7 RDW 13.5 13.5 Plt Count 156 148 L Neut % (Auto) 58.7 56.5 Lymph % (Auto) 28.4 30.4 [place] % (Auto) 9.5 8.9 Eos % (Auto) 2.8 3.5 Baso % (Auto) 0.6 0.7 Neut # (Auto) 2900 2900 Lymph # (Auto) 1400 1600 [place] # (Auto) 500 500 Eos # (Auto) 100 200 Baso # (Auto) 0 0 Total Counted Cancelled Seg Neutrophils % Cancelled Band Neutrophils % Cancelled Lymphocytes % (Manual) Cancelled Atypical Lymphs % Cancelled Monocytes % (Manual) Cancelled Eosinophils % (Manual) Cancelled Basophils % (Manual) Cancelled Metamyelocytes % Cancelled Myelocytes % Cancelled Promyelocytes % Cancelled Blast Cells % Cancelled Neutrophils # (Manual) Cancelled Nucleated RBCs Cancelled Differential Comment Cancelled Hypersegmented Neuts Cancelled Reactive Lymphocytes Cancelled Plasma Cells Cancelled Smudge Cells Cancelled Other Cell Type Cancelled Toxic Granulation Cancelled Toxic Vacuolation Cancelled Dohle Bodies Cancelled Elier Rods Cancelled WBC Morphology Comment Cancelled Platelet Estimate Cancelled Clumped Platelets Cancelled Plt Morphology Comment Cancelled RBC Morphology Cancelled Dimorphic RBCs Cancelled Polychromasia Cancelled Hypochromasia Cancelled Poikilocytosis Cancelled Basophilic Stippling Cancelled Anisocytosis Cancelled Microcytosis Cancelled Macrocytosis Cancelled Spherocytes Cancelled Pappenheimer Bodies Cancelled Sickle Cells Cancelled Target Cells Cancelled Tear Drop Cells Cancelled Ovalocytes Cancelled Stomatocytes Cancelled Helmet Cells Cancelled [place] Bodies Cancelled [place] Rings Cancelled Reid Cells Cancelled Acanthocytes (Spur) Cancelled Rouleaux Cancelled Schistocytes Cancelled ESR 9 Sodium 135 L 134 L Potassium 4.0 3.5 Chloride 105 106 Carbon Dioxide 27 25 BUN 15 13 Creatinine 0.94 0.82 Estimated GFR > 60 > 60 BUN/Creatinine Ratio 16.0 15.9 Glucose 83 106 H Lactate 0.9 Calcium 8.4 8.0 L Total Bilirubin < 0.1 L AST 25 ALT 27 Alkaline Phosphatase 41 Total Protein 5.1 L Albumin 2.7 L Globulin 2.4 Albumin/Globulin Ratio 1.1 HCG, Quant < 2.39 Blood Type O Positive Antibody Screen Negative [facility] Medical History Insomnia, unspecified MDD (major depressive disorder), recurrent, in partial remission Generalized anxiety disorder with panic attacks PTSD (post-traumatic stress disorder) (~2011) Depression (~2011) Pulmonary hypertension (~2020) Anxiety (~2011) Gastroparesis (~2013) GERD (gastroesophageal reflux disease) (~2011) Migraines (~2019) Ovarian cyst (~2016) Family History Father Heavy drinker COPD (chronic obstructive pulmonary disease) Diabetes mellitus Hypertension Mother Hypertension Hyperlipidemia Thyroid disorder Brother Mental health problem Enlarged heart Grandfather Cancer Grandfather Cancer Diabetes mellitus Grandmother Cancer Social History marital status: number of children: 1 household members: spouse and children 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[employer]) other: moved from [place] alcohol intake: never Assessment & Plan Assessment and plan (1) Right lower quadrant pain: Status: Acute (2) Pelvic inflammatory disease: Status: Suspected Plan Despite appropriate antibiotic therapy, the patient has not improved in any way since admission for the presumptive diagnosis of pelvic inflammatory disease. Accordingly we discussed options as to how to further evaluate/treat her pain and after extensive discussions, the patient agrees with proposed diagnostic laparoscopy with further evaluation/treatment based on those findings. In addition surgical consult has been obtained preoperatively and general surgery will be involved with the laparoscopic procedure to carefully evaluate the pelvis, abdomen, bowel, and any other adjacent structures which may responsible for the patient's ongoing pain. She is counseled regarding the alternatives, risks, benefits, and potential complications associated with laparoscopy in any following surgery necessitated by findings at the time. With full understanding of the above, a written consent was executed, signed, and witnessed this date. Time-Based Coding :: [TOTAL MINUTES] spent with patient and on the chart (including review of chart, obtaining history, exam, reviewing outside data, placing orders, documenting exam and treatment plan, and counseling patient) on [DATE]. Quality VTE Deep Vein Thrombosis/Pulmonary Embolism Present on Admission: No PROFEE Certified Recreational Therapist Document charge(s): No
--- NOTE | 2025-08-13 09:01 | P.PN_ITS ---
Subjective Subjective Date Patient Seen: 08/13/25 Time Patient Seen: 08:30 Interval history: Patient is resting in bed still with lower abdominal pain patient has been going on for over 2 weeks. Patient is scheduled for a laparoscopy with Dr. Patrick this morning. We will evaluate the abdominal contents to see what pathology she has. Patient has a very long redundant sigmoid colon but no signs of volvulus or torsion at this time but it may be causing part of her pain. We will see how redundant her colon as at the time of the procedure. Discussed with patient the findings may have to have a mini-laparotomy at the time of surgery procedure risks and complications were fully explained including risk for cardiopulmonary depression infection bleeding patient understands and consents she just wants to be finished with the pain. Morning laboratory shows WBC of 5.2 hemoglobin is 10.4 hematocrit is 30.9 platelets are 148,000 sodium is 134 potassium 3.4 chloride 106 bicarb is 25 BUN 13 creatinine 0.82 random blood sugar is 106 lactate is 0.9 normal LFTs test is negative. Vitals: Temperature is 98.0? pulse 83 respirations 16 BP is 92/51 SaO2 is 100% on room air Heart regular rate and rhythm without murmurs. Lungs diminished in the bases poor inspiratory and expiratory effort poor chest wall motion noted. Abdomen soft with good active bowel sounds suprapubic right lower quadrant tenderness but no rebound or guarding. Impression: Right lower quadrant suprapubic pain x2 weeks CT scan showing a very long redundant colon no signs of torsion or volvulus colon was filled with stool. Plan: Patient is go to surgery today with Dr. Patrick for laparoscopy to evaluate for any pelvic pathology we will be available to observe if patient has any pathology discussed possible mini laparotomy procedure risks and complications were fully explained patient understands and consents. All questions were answered patient's satisfaction. Exam Vital Signs (past 8 hours): - 08/13/25 02:00 08/13/25 04:20 08/13/25 05:31 Temperature 98.1 F Pulse Rate 71 88 73 Respiratory Rate 18 Blood Pressure 99/56 L 85/48 L 88/59 L Pulse Oximetry 97 Oxygen Flow Rate 0 08/13/25 06:00 Temperature 98 F Pulse Rate 83 Respiratory Rate 16 Blood Pressure 92/51 L Pulse Oximetry 100 Oxygen Flow Rate 0 Oxygen Delivery Method Room Air Oxygen Flow Rate 0 Objective Labs 08/13/25 04:42 08/13/25 04:42 Labs: Laboratory Results - last 24 hr 08/12/25 08/13/25 14:21 04:42 WBC 4.9 5.2 RBC 3.69 L 3.44 L Hgb 11.3 L 10.4 L Hct 33.5 L 30.9 L MCV 90.7 90.0 MCH 30.7 30.4 MCHC 33.9 33.7 RDW 13.5 13.5 Plt Count 156 148 L Neut % (Auto) 58.7 56.5 Lymph % (Auto) 28.4 30.4 [place] % (Auto) 9.5 8.9 Eos % (Auto) 2.8 3.5 Baso % (Auto) 0.6 0.7 Neut # (Auto) 2900 2900 Lymph # (Auto) 1400 1600 [place] # (Auto) 500 500 Eos # (Auto) 100 200 Baso # (Auto) 0 0 Total Counted Cancelled Seg Neutrophils % Cancelled Band Neutrophils % Cancelled Lymphocytes % (Manual) Cancelled Atypical Lymphs % Cancelled Monocytes % (Manual) Cancelled Eosinophils % (Manual) Cancelled Basophils % (Manual) Cancelled Metamyelocytes % Cancelled Myelocytes % Cancelled Promyelocytes % Cancelled Blast Cells % Cancelled Neutrophils # (Manual) Cancelled Nucleated RBCs Cancelled Differential Comment Cancelled Hypersegmented Neuts Cancelled Reactive Lymphocytes Cancelled Plasma Cells Cancelled Smudge Cells Cancelled Other Cell Type Cancelled Toxic Granulation Cancelled Toxic Vacuolation Cancelled Dohle Bodies Cancelled [place]lier Rods Cancelled WBC Morphology Comment Cancelled Platelet Estimate Cancelled Clumped Platelets Cancelled Plt Morphology Comment Cancelled RBC Morphology Cancelled Dimorphic RBCs Cancelled Polychromasia Cancelled Hypochromasia Cancelled Poikilocytosis Cancelled Basophilic Stippling Cancelled Anisocytosis Cancelled Microcytosis Cancelled Macrocytosis Cancelled Spherocytes Cancelled Pappenheimer Bodies Cancelled Sickle Cells Cancelled Target Cells Cancelled Tear Drop Cells Cancelled Ovalocytes Cancelled Stomatocytes Cancelled Helmet Cells Cancelled [place] Bodies Cancelled [place] Rings Cancelled [place] Cells Cancelled Acanthocytes (Spur) Cancelled Rouleaux Cancelled Schistocytes Cancelled ESR 9 Sodium 135 L 134 L Potassium 4.0 3.5 Chloride 105 106 Carbon Dioxide 27 25 BUN 15 13 Creatinine 0.94 0.82 Estimated GFR > 60 > 60 BUN/Creatinine Ratio 16.0 15.9 Glucose 83 106 H Lactate 0.9 Calcium 8.4 8.0 L Total Bilirubin < 0.1 L AST 25 ALT 27 Alkaline Phosphatase 41 Total Protein 5.1 L Albumin 2.7 L Globulin 2.4 Albumin/Globulin Ratio 1.1 HCG, Quant < 2.39 Blood Type O Positive Antibody Screen Negative [facility] Medical History Insomnia, unspecified MDD (major depressive disorder), recurrent, in partial remission Generalized anxiety disorder with panic attacks PTSD (post-traumatic stress disorder) (~2011) Depression (~2011) Pulmonary hypertension (~2020) Anxiety (~2011) Gastroparesis (~2013) GERD (gastroesophageal reflux disease) (~2011) Migraines (~2019) Ovarian cyst (~2016) Family History Father Heavy drinker COPD (chronic obstructive pulmonary disease) Diabetes mellitus Hypertension Mother Hypertension Hyperlipidemia Thyroid disorder Brother Mental health problem Enlarged heart Grandfather Cancer Grandfather Cancer Diabetes mellitus Grandmother Cancer Social History marital status: number of children: 1 household members: spouse and children 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 Quality VTE Deep Vein Thrombosis/Pulmonary Embolism Present on Admission: No IH PROFEE Hydraulic Bull Riveter Operator Document charge(s): Yes
--- NOTE | 2025-08-13 09:33 | CM.DPNOTE ---
DCP Note UNDERGROUND MINER reviewed EMR per RN report/surgeon note, pt to go to OR today at noon([facility]) for diagnostic laparoscopy to evaluate for any pelvic pathology vs other pathology. per RN, pt in significant pain overnight. no identified barriers to safe dc home at this time. will continue to follow as needed in case any should arise. pt only requested a work excuse letter at dc at this time TIM Chong
[2025-08-13] MEDS: POTASSIUM CHLORIDE IN WATER 10 MEQ/100 ML PIGGYBACK 100 MEQ IV (10:14)
--- NOTE | 2025-08-13 11:02 | P.OP_ITS ---
Operative Date/Time/Diagnoses Date of procedure: 08/13/25 Time of procedure: 10:00 Pre-op diagnosis: Rectal bleeding acute blood loss anemia with CT scan showing right colon mass Post-op diagnosis: same (Near circumferential right colon mass) Procedure & Clinicians Procedure: Patient is a 47-year-old white male was seen in consultation in the emergency room with rectal bleeding acute blood loss anemia and CT scan showing a right cecal mass slightly above the ileocecal valve. Discussed with patient need for colonoscopy with MAC and control of bleeding. Procedure risks and complications were fully explained including risk for cardiopulmonary depression infection bleeding and bowel injury patient understood and consented. Patient underwent a clear liquid diet and bowel prep patient also was given 1 unit of packed RBCs preop. Patient was brought to endoscopy suite was given continuous pulse oximetry nasal cannula oxygen and EKG monitoring sedation as per anesthesia. Time-out was performed procedure patient and surgeon all the room were in agreement. And the patient had had digital rectal exam was performed no tumors masses nodules polyps or blood was noted on the examining finger. Videocolonosc ope was then lubricated and easily advanced through the colon some particulate stool was noted this washed off with a power shellfish processing machine tender and a fungating and mucous this controlled electrocautery biopsies were performed with a hot biopsy forceps no further bleeding was noted. It was desufflated I did no signs of bleeding with desufflation. The patient then had the scope was slowly withdrawn washing all materials all the forrest aspirating all puddles avoiding hidden pathology great care is taken visualize the lesser curvatures no proximal side of the haustra. Patient and the rectum was noted to have a small diminutive polyp this removed the cautery snare and aspirated into a trap no signs of bleeding grade 1 hemorrhoids were noted. All insufflated air was aspirated the scope was removed patient tolerated the procedure well without incident or complication the patient was returned to recovery room in satisfactory condition. Postoperatively we will admit back to inpatient transfuse 1 more unit of packed RBCs doing well possible discharge today or in the a.m.. Discussed with patient and family the findings and need for right hemicolectomy with anastomosis. We will discharge and bring back to schedule outpatient resection we will admit postoperatively. All questions were answered to patient's satisfaction. Same procedure(s) as scheduled: Yes Surgeon: Gene Peng Click Yes if Unassisted: Yes Anesthesia Type: MAC +/- Operative Notes Findings: Grade 1 hemorrhoids small rectal polyp right cecal tumor with oozing controlled with cautery Prosthetic devices, grafts, tissues, transplants, or devices: Rectal polyp, biopsies of right colon tumor Applied: none Estimated Blood Loss (mL): 5 Blood products transfused: none (Patient is scheduled for 1 unit of packed RBCs postop) Complications: none Post-operative Condition: stable Disposition: PACU
--- NOTE | 2025-08-13 12:43 | PM.PREOP ---
Pre-operative Note COVID-19 COVID-19 status: Not tested Interval Note History & Physical reviewed/Exam performed by Physician: Yes Changes to H&P: No
--- NOTE | 2025-08-13 13:18 | SUR.OPER ---
Lithotomy on padded OR bed. [place] Pad Positioner under torso. Head on pillow, arms padded and tucked at sides. Legs secured in padded yellow fins stirrups. Safety strap across chest and arms.
[2025-08-13] MEDS: LACTATED RINGERS 1,000 ML 42 ML IV (13:48)
--- NOTE | 2025-08-13 14:24 | P.OP_ITS ---
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 At that time she was seen with a about a week history of sharp sudden onset right lower quadrant stabbing pain which began on or about 07/31/2025. She also at that time began having some light spotting which has been intermittent since that time. Evaluation in the emergency department on 08/03/2025 included a pelvic ultrasound which showed : FINDINGS: Uterus: Anteverted positioning. 7.3 x 5.5 x 3.5 cm. Endometrium measures 2-3 mm, within normal limits Suspect arcuate configuration. Nabothian cysts are present trace endocervical fluid. Ovaries: Moderately enlarged right ovary mid measuring 35 cc. There is a simple appearing 3.6 x 3.3 cm cyst. Left ovary is nonenlarged at 5 cc. Color and spectral flows are identified bilaterally in the ovarian parenchyma Other: Postvoid bladder residual is 80 cc. IMPRESSION: Moderately enlarged right ovary, with a simple appearing 3.6 x 3.3 cm cyst. This can predispose to torsion, which can be intermittent. At the time of exam, spectral vascular flows were identified in the ovarian parenchyma Suspect arcuate uterus. Non-thickened endometrium. Patient's pain is worse when she walks and has gradually spread to the left side of the pelvis although it is significantly less on the left. She also experiences pain with emptying her bladder and bowel movements. She was initiated on oral doxycycline and metronidazole but has had no significant benefit from those medications. Patient has a history of a similar episode about a year ago and was diagnosed at that time with pelvic inflammatory disease. Patient has a history of bacterial vaginosis but has no history of any sexually transmitted illness and she is in a monogamous marriage. Patient also reports on an off fever at home and she has a temperature of 100.9? orally in the office prior to admission. She has been afebrile following admission, her WBC count is normal, but despite appropriate antibiotic therapy, her pain has remained unchanged.. She is undergoing diagnostic laparoscopy at this time along with intraoperative surgical consultation. Surgeon: Guy Patirck Condominium Manager: Gene Peng Anesthesia Type: General Operative Notes Findings: Aside from a 3.5-4.0 cm simple right follicular cyst, the entire abdomen and pelvis were normal to laparoscopic inspection. The cyst was opened with monopolar scissors and drained, revealing only clear fluid. No bleeding was encountered. No other abnormalities were seen in the pelvis or abdomen despite extensive evaluation of the bowel, peritoneum, pelvis, and perihepatic/ne phragmatic regions. This evaluation was carried out by both myself and the attending general surgeon who was present in the OR for the procedure itself. Specimen(s): none Applied: none Estimated blood loss (mL): 5 Blood products transfused: none Procedure in detail: With the patient under satisfactory general anesthesia in the modified dorsal lithotomy position, the perineum, vagina, and abdomen were prepped and draped in the usual manner. A pre-surgical safety time-out was then taken in accordance with [facility] OR protocols. A Zumi manipulator was placed in the cervix after gentle dilation of the endocervical canal. The inferior edge of the umbilicus was infiltrated with 0.25% Marcaine with epinephrine and a 5 cm vertical umbilical incision was then made. A very as needed was used to insufflate the abdomen with carbon dioxide once insufflated the 5 mm laparoscopic trocar and sleeve were inserted through the incision. Once the correct placement of the trocar was confirmed by direct visualization, the abdomen was fully insufflated with carbon dioxide to a pressure of 15 mm Hg. A 2nd and 3rd incision was made in the left and right mid quadrants through which a 5 mm laparoscopic port was placed after infiltration of the skin and subcutaneous tissues with 0.25% lidocaine with epinephrine. The patient was then placed in steep Trendelenburg. The uterus was mobilized using the Zumi manipulator. A thorough survey of the abdomen and pelvis with photographic documentation was carried out with no abnormal findings found other than the 3-4 cm simple right ovarian cysts which had been noted on imaging prior to surgery. The cyst itself was drained using a monopolar scissors through the surface of the cyst wall in an avascular space. Clear fluid was seen to come from the cyst and gentle introduction of the scope into this has cavity showed it to be smooth lined in its entirety. The scope was removed from the ovary and no bleeding was encountered. The peritoneal fluid in the cul-de-sac was aspirated with a 60 cc syringe and discarded. Reinspection of the abdomen including the bowel was conducted a 2nd time and again no abnormalities were seen. At that point the operation was terminated by venting of the pneumoperitoneum replacement of the patient into supine position, and closure of the incisions with 4-0 Monocryl subcuticular stitches using inverted interrupted. Appropriate dressings were applied. The Zumi uterine manipulator was removed intact. Patient was then awakened after having tolerated the procedure well and transferred to the recovery room after period of observation. Complications: none Post-operative Condition: stable Disposition: PACU Plan for aftercare: Routine postoperative care
[2025-08-13] MEDS: droPERidol 2.5 MG/ML VIAL IV (15:05)
--- NOTE | 2025-08-13 16:47 | PC.NURSE ---
Pt arrived from PACU at 1550, oriented x4 but drowsy. 3 dressings to abdominal lap sites, C/D/I. denies nausea, c/o 9/10 pain, but pain decreased significantly after several minutes. Fluids started, pt does not want any oral pain meds at this time. Re-oriented to room and call light. Bed in low position, call light within reach, SCDs on.
[2025-08-13] MEDS: MAGNESIUM HYDROXIDE 30 ML UDC PO (17:15)
--- NOTE | 2025-08-13 17:48 | P.PN_ITS ---
Subjective Subjective Date Patient Seen: 08/13/25 Time Patient Seen: 05:45 Interval history: Patient is seen postop laparoscopy drainage of right ovarian cyst. Patient states she has incisional pain but does not have the pelvic pain that she was having previously this was gone. The patient the time of the laparoscopy was noted to have colon Filled with stool would been unable to have a Gastrografin enema to evaluate the colon. Discussed with patient the findings we will go ahead and give her laxatives to help her have a bowel movement as she states she has not had 1 since she has been here. We will follow with Dr. Patrick no need for general surgery intervention at this time. Exam Vital Signs (past 8 hours): - 08/13/25 14:18 08/13/25 14:25 08/13/25 14:30 Temperature 98 F Pulse Rate 88 96 H 93 H Respiratory Rate 11 L 15 13 Blood Pressure 131/69 120/61 124/62 Pulse Oximetry 100 98 97 Oxygen Delivery Method Nasal Cannula Room Air Room Air Oxygen Flow Rate 2 08/13/25 14:35 08/13/25 14:45 08/13/25 15:00 Temperature 98 F Pulse Rate 94 H 85 87 Respiratory Rate 12 12 12 Blood Pressure 119/60 109/56 L 108/59 L Pulse Oximetry 98 99 97 Oxygen Delivery Method Room Air Oxygen Flow Rate 08/13/25 15:15 08/13/25 15:31 08/13/25 15:45 Temperature Pulse Rate 74 74 74 Respiratory Rate 16 16 16 Blood Pressure 98/52 L 101/50 L 98/50 L Pulse Oximetry 96 96 96 Oxygen Delivery Method Room Air Room Air Room Air Oxygen Flow Rate 08/13/25 16:06 08/13/25 16:44 08/13/25 17:00 Temperature 97.7 F 97.9 F 97.6 F Pulse Rate 68 84 87 Respiratory Rate 14 14 16 Blood Pressure 113/63 94/51 L 105/67 Pulse Oximetry 99 100 96 Oxygen Delivery Method Oxygen Flow Rate 0 0 0 Oxygen Delivery Method Room Air Oxygen Flow Rate 0 Objective Labs 08/13/25 04:42 08/13/25 04:42 Labs: Laboratory Results - last 24 hr 08/13/25 04:42 WBC 5.2 RBC 3.44 L Hgb 10.4 L Hct 30.9 L MCV 90.0 MCH 30.4 MCHC 33.7 RDW 13.5 Plt Count 148 L Neut % (Auto) 56.5 Lymph % (Auto) 30.4 Merrick % (Auto) 8.9 Eos % (Auto) 3.5 Baso % (Auto) 0.7 Neut # (Auto) 2900 Lymph # (Auto) 1600 Merrick # (Auto) 500 Eos # (Auto) 200 Baso # (Auto) 0 ESR 9 Sodium 134 L Potassium 3.5 Chloride 106 Carbon Dioxide 25 BUN 13 Creatinine 0.82 Estimated GFR > 60 BUN/Creatinine Ratio 15.9 Glucose 106 H Lactate 0.9 Calcium 8.0 L Total Bilirubin < 0.1 L AST 25 ALT 27 Alkaline Phosphatase 41 Total Protein 5.1 L Albumin 2.7 L Globulin 2.4 Albumin/Globulin Ratio 1.1 HCG, Quant < 2.39 Blood Type O Positive Antibody Screen Negative [facility] Medical History Insomnia, unspecified MDD (major depressive disorder), recurrent, in partial remission Generalized anxiety disorder with panic attacks PTSD (post-traumatic stress disorder) (~2011) Depression (~2011) Pulmonary hypertension (~2020) Anxiety (~2011) Gastroparesis (~2013) GERD (gastroesophageal reflux disease) (~2011) Migraines (~2019) Ovarian cyst (~2016) Family History Father Heavy drinker COPD (chronic obstructive pulmonary disease) Diabetes mellitus Hypertension Mother Hypertension Hyperlipidemia Thyroid disorder Brother Mental health problem Enlarged heart Grandfather Cancer Grandfather Cancer Diabetes mellitus Grandmother Cancer Social History marital status: number of children: 1 household members: spouse and children 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[employer]) other: moved from [place] Smoking Status: Current some day smoker alcohol intake: never Assessment & Plan Time-Based Coding :: [TOTAL MINUTES] spent with patient and on the chart (including review of chart, obtaining history, exam, reviewing outside data, placing orders, documenting exam and treatment plan, and counseling patient) on [DATE]. 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
[2025-08-13 21:30] LABS: Blood Urea Nitrogen 11 mg/dL (7-17); Calcium 8.2 mg/dL (8.4-10.2); Carbon Dioxide 26 mmol/L (22-32); Chloride 106 mmol/L (98-107); Estimated Glomerular Filt Rate > 60 mL/min (>60); Glucose 90 mg/dL (70-99); HEMOLYSIS < 15 (0-50); Potassium 3.9 mmol/L (3.4-5.1); Sodium 134 mmol/L (137-145)
[2025-08-14] MEDS: FLEETS ENEMA 1 EACH PR (00:16)
[2025-08-14 00:23] VITALS: BP 103/63; PULSE 78; RESP 16; O2SAT 97
[2025-08-14] MEDS: LACTATED RINGERS 1,000 ML 100 ML IV (01:56)
[2025-08-14] MEDS: ONDANSETRON 4 MG/2 ML INJ IV ×3 (02:02→09:36)
[2025-08-14 03:26] VITALS: BP 110/69; PULSE 82; RESP 16; O2SAT 98
[2025-08-14] MEDS: KETOROLAC 30 MG/ML VIAL IV (06:22)
--- NOTE | 2025-08-14 08:45 | PM.PN.IH.1 ---
Subjective Subjective Date Patient Seen: 08/14/25 Time Patient Seen: 08:45 Interval history: Patient is resting comfortably in bed states she is feeling better has some mild incisional discomfort but the pelvic pain is gone. Patient is postop day 1. Laparoscopy with drainage of right ovarian cyst by Dr. Patrick. Patient states she has had a bowel movement and feels better. Patient's morning laboratory shows sodium of 134 potassium 3.9 chloride 106 bicarb is 26 BUN of 11 creatinine 0.84 random blood sugar is 90. Vitals: Temperature is 97.9? pulse 82 respirations 16 BP is 110/69 SaO2 is 98% on room air. Heart regular rate and rhythm without murmurs. Lungs are clear to auscultation. Abdomen is soft nondistended incision sites are clean and dry no sign infection or inflammation. Impression: Resolved abdominal pain after laparoscopy with drainage of right ovarian cyst. Obstipation has resolved with laxatives and motility agents Plan: Discussed with the patient the findings no need for surgical intervention at this time. Discussed if she has further problems with her stools that she needs to follow up in the surgical offices for possible Gastrografin or barium enema or colonoscopy. Discussed with the patient dietary fiber water fluids bowel habits all questions were answered patient's satisfaction. Return if any problems questions or concerns. Exam Vital Signs (past 8 hours): - 08/14/25 03:26 Pulse Rate 82 Respiratory Rate 16 Blood Pressure 110/69 Pulse Oximetry 98 Oxygen Delivery Method Room Air Oxygen Flow Rate 0 Objective Labs 08/13/25 04:42 08/13/25 21:06 Labs: Laboratory Results - last 24 hr 08/13/25 21:06 Sodium 134 L Potassium 3.9 Chloride 106 Carbon Dioxide 26 BUN 11 Creatinine 0.84 Estimated GFR > 60 BUN/Creatinine Ratio 13.1 Glucose 90 Calcium 8.2 L [facility] Medical History Insomnia, unspecified MDD (major depressive disorder), recurrent, in partial remission Generalized anxiety disorder with panic attacks PTSD (post-traumatic stress disorder) (~2011) Depression (~2011) Pulmonary hypertension (~2020) Anxiety (~2011) Gastroparesis (~2013) GERD (gastroesophageal reflux disease) (~2011) Migraines (~2019) Ovarian cyst (~2016) Family History Father Heavy drinker COPD (chronic obstructive pulmonary disease) Diabetes mellitus Hypertension Mother Hypertension Hyperlipidemia Thyroid disorder Brother Mental health problem Enlarged heart Grandfather Cancer Grandfather Cancer Diabetes mellitus Grandmother Cancer Social History marital status: number of children: 1 household members: spouse and children 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[employer]) other: moved from [place] Smoking Status: Current some day smoker alcohol intake: never Assessment & Plan Time-Based Coding :: [TOTAL MINUTES] spent with patient and on the chart (including review of chart, obtaining history, exam, reviewing outside data, placing orders, documenting exam and treatment plan, and counseling patient) on [DATE]. 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
[2025-08-14] MEDS: ACETAMINOPHEN 325 MG TABLET 650 MG PO (09:36)
[2025-08-14] MEDS: SODIUM CHLORIDE 0.9% FLUSH 10 ML IV (09:37)
--- NOTE | 2025-08-14 11:23 | CM.DPNOTE ---
DCP note EXTRACT OPERATOR reviewed EMR per RN report, pt POD1 ovarian cyst drainage, doing well. voiding/eating/doing well with pain. will likely dc today. per Dr. Patrick, plans to complete work excuse paperwork himself when he rounds EXTRACT OPERATOR met with pt in room, updated on plan. appreciative. denies other DCP/CM needs at this time. mom will take her home. P: dc today home with family and OP f/u. no CM needs at this time. will continue to follow in case any DCP needs should arise TIM Chong
[2025-08-14 11:29] VITALS: BP 109/65; PULSE 98; RESP 14; TEMP 36.8; O2SAT 97
--- NOTE | 2025-08-14 12:08 | PM.DS.IH.1 ---
History of Present Illness History of Present Illness Date Patient Seen: 08/14/25 Time Patient Seen: 12:08 Date of Onset of Symptoms: 07/27/25 Chief complaint: Pelvic/RLQ pain Narrative: Jacquelyn is a 39-year-old , LMP 07/22/2025 presenting in ED follow-up from a visit on 08/03/2025 for right lower quadrant pain. At that time she was seen with a about a week history of sharp sudden onset right lower quadrant stabbing pain which began on or about 07/31/2025. She also at that time began having some light spotting which has been intermittent since that time. Evaluation in the emergency department on 08/03/2025 included a pelvic ultrasound which showed: FINDINGS: Uterus: Anteverted positioning. 7.3 x 5.5 x 3.5 cm. Endometrium measures 2-3 mm, within normal limits Suspect arcuate configuration. Nabothian cysts are present trace endocervical fluid. Ovaries: Moderately enlarged right ovary mid measuring 35 cc. There is a simple appearing 3.6 x 3.3 cm cyst. Left ovary is nonenlarged at 5 cc. Color and spectral flows are identified bilaterally in the ovarian parenchyma Other: Postvoid bladder residual is 80 cc. IMPRESSION: Moderately enlarged right ovary, with a simple appearing 3.6 x 3.3 cm cyst. This can predispose to torsion, which can be intermittent. At the time of exam, spectral vascular flows were identified in the ovarian parenchyma Suspect arcuate uterus. Non-thickened endometrium. Patient's pain is worse when she walks and has gradually spread to the left side of the pelvis although it is significantly less on the left. She also experiences pain with emptying her bladder and bowel movements. She was initiated on oral doxycycline and metronidazole but has had no significant benefit from those medications. Patient has a history of a similar episode about a year ago and was diagnosed at that time with pelvic inflammatory disease. Patient has a history of bacterial vaginosis but has no history of any sexually transmitted illness and she is in a monogamous marriage. Patient also reports on an off fever at home and she has a temperature of 100.9? orally in the office prior to admission for the presumptive diagnosis of pelvic inflammatory disease as the cause of her right lower quadrant pain. Discharge Providers Provider Date of admission: 08/11/25 11:35 Discharge Date: 08/14/25 Primary care physician: Heena Orona MD Consults: 08/12/25 10:54 Consult to General Surgery Urgent Comment: Consulting Provider: [facility] Reason for consultation: RLQ/pelvic pain; ? PID but not responding to IV AB's. Possible scope 08/13 Has provider been notified: Yes 08/13/25 10:57 Consult to Discharge Planning Routine Comment: Patient may be discharged after transfusion of pac Discharge provider: Guy Patrick MD Summary Hospital Course Discharge Diagnosis: Right lower quadrant pain of uncertain origin Pelvic inflammatory disease (presumptive diagnosis) Functional cyst, right ovary Normal pelvic and intraperitoneal abdominal examination by diagnostic laparoscopy Hospital Course: The patient was admitted for antibiotic treatment of presumed pelvic inflammatory disease as a cause of her right upper quadrant pain. The patient however did not respond to 36-48 hours of appropriate antibiotic therapy and subsequently underwent diagnostic laparoscopy. The findings at laparoscopy which was attended by the consulting general surgeon, demonstrated no significant abnormalities in the pelvis, abdomen or any other area of the intra-abdominal space. There was a 3-4 cm simple ovarian cyst which was drained during the course of the surgery and demonstrated only clear fluid with no internal lesions or nodularity. Following the surgery, the patient's pain seemed to be somewhat improved and will be discharged at this time to home in an afebrile normotensive condition after counseling regarding precautionary symptoms, limitations of activity, medications, and plans for follow-up which will be in 2 weeks. Medications at discharge will include resumption of all preadmission medication and patient does have appropriate pain medications at home for as needed use. Exam Vital Signs (past 8 hours): - 08/14/25 11:29 Temperature 98.3 F Pulse Rate 98 H Respiratory Rate 14 Blood Pressure 109/65 Pulse Oximetry 97 Oxygen Flow Rate 0 Oxygen Delivery Method Room Air Oxygen Flow Rate 0 Objective Labs 08/13/25 04:42 08/13/25 21:06 Labs: Laboratory Results - last 24 hr 08/13/25 21:06 Sodium 134 L Potassium 3.9 Chloride 106 Carbon Dioxide 26 BUN 11 Creatinine 0.84 Estimated GFR > 60 BUN/Creatinine Ratio 13.1 Glucose 90 Calcium 8.2 L [facility] Medical History Insomnia, unspecified MDD (major depressive disorder), recurrent, in partial remission Generalized anxiety disorder with panic attacks PTSD (post-traumatic stress disorder) (~2011) Depression (~2011) Pulmonary hypertension (~2020) Anxiety (~2011) Gastroparesis (~2013) GERD (gastroesophageal reflux disease) (~2011) Migraines (~2019) Ovarian cyst (~2016) Family History Father Heavy drinker COPD (chronic obstructive pulmonary disease) Diabetes mellitus Hypertension Mother Hypertension Hyperlipidemia Thyroid disorder Brother Mental health problem Enlarged heart Grandfather Cancer Grandfather Cancer Diabetes mellitus Grandmother Cancer Social History marital status: number of children: 1 household members: spouse and children 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 Your follow-up appointment will be scheduled for 2 weeks after surgery and I look forward to seeing you then. If however in the meanwhile you have any issues, concerns, or questions, please contact me either through the office phone at [phone], or via the patient portal. Discharge orders & Medications Prescriptions: Continued Nexplanon 68 mg implant 1 implant subdermal .q 3 years topiramate 100 mg tablet See Rx Instructions PO .COMPLEX Patient Comments: 1 100mg before bed and 1/2 a tablet in the morning. Rx Instructions: orally; Botox Injections See Rx Instructions .ROUTE .COMPLEX Rx Instructions: Every 3 months for migraines Ubrelvy 100 mg tablet 100 mg PO PRN PRN (Reason: migraine headache) Discontinued metronidazole 500 mg tablet 500 mg PO BID Qty: 14 0RF doxycycline hyclate 100 mg capsule 100 mg PO BID Qty: 28 0RF No Action liothyronine 5 mcg tablet 10 mcg PO QAM levothyroxine 25 mcg tablet 25 mcg PO DAILY calcitriol 0.25 mcg capsule 0.25 mcg PO DAILY benzonatate 200 mg capsule 200 mg PO BID PRN (Reason: cough) Qty: 28 0RF ondansetron 8 mg tablet,disintegrating 8 mg PO Q8H PRN (Reason: nausea and vomiting) Qty: 14 0RF nortriptyline 50 mg capsule 50 mg PO DAILY Qty: 90 0RF lorazepam 1 mg tablet 1 mg PO DAILY PRN (Reason: anxiety) Qty: 30 1RF ondansetron 4 mg tablet,disintegrating 4 mg PO Q8H PRN (Reason: nausea and vomiting) Qty: 30 0RF duloxetine 20 mg capsule,delayed release(DR/EC) 20 mg PO BID Qty: 60 2RF Rx Instructions: take with food Follow up/Referrals: Heena Orona MD [Primary Care Provider, Family Practice] Guy Patrick MD [Physician, [employer] FI[employer] TECHNICIAN] Discharge Health Status Multidrug resistant organism: No MDRO Diet/Activity/Treatments Activity: As tolerated Other treatments: [id number] Tylenol and/or ibuprofen may be used as needed for pain relief. Over the counter stool softeners and/or MiraLax should be used daily to prevent constipation. Skin/Wound/Dressing Care Report to your healthcare provider any signs of infection, such as:: chills, fever, increased pain, unusual drainage and unusual redness Dressing: Dressings should be removed on the morning of 08/15/2025 Visit Report/Discharge Packet Instructions: DI for Laparoscopy, DI for Ovarian Cyst, Ovarian Cyst Removal -- Laparoscopic Surgery, DI for Prescription Opioid Use Stand Alone Forms: Surgery Discharge Discharge Data Primary Care Provider: Heena Orona Quality VTE Deep Vein Thrombosis/Pulmonary Embolism Present on Admission: No IH PROFEE Charge Codes Discharge inpatient/observation: [id number]
--- NOTE | 2025-08-14 13:12 | PC.NURSE ---
patient a&o x4, teaching done with patient and mother at bedside. Questions and concerns were addressed. Pt knows to call and sched. f/u with provider with in two weeks. Pt's 2 IV's were removed, without difficulty. Call light within reach for calling when ready to leave. Family is in room gathering personal belongings at this time.
== END 2025-08-14 13:25 | disposition home or self-care (01) | DRG 743 ==
PROVIDERS: Pharmacist Pharmacist Clinician (PhC)/ Clinical Pharmacy Specialist; Surgery; Admitting Provider Obstetrics & Gynecology; PCP Family Medicine; Referring Provider Obstetrics & Gynecology; Visit Provider Obstetrics & Gynecology
PROC: 0U904ZZ Drainage of Right Ovary, Percutaneous Endoscopic Approach (ICD-10-PCS; CPT 49320; principal; 2025-08-13 12:00)
PROC: (CPT 49320; 2025-08-13 12:00)
DX: N73.9 Female pelvic inflammatory disease, unspecified (principal); N83.201 Unspecified ovarian cyst, right side; N83.8 Other noninflammatory disorders of ovary, fallopian tube and broad ligament; K59.00 Constipation, unspecified; R10.31 Right lower quadrant pain; F17.200 Nicotine dependence, unspecified, uncomplicated; G43.909 Migraine, unspecified, not intractable, without status migrainosus
CPT/HCPCS: 36415; 74177; 80048; 80053; 80170; 81001; 82565; 83605; 84702; 85025; 85651; 86850; 86900; 86901; 87040; 99222; 99231; J0330; J1171; J1790; J1885; J2250; J2405; J2704; J2765; J3010; J3490; Q9967

== ENCOUNTER → 2025-11-03 11:08 | Outpatient (CLI) | payer OTHER, SELFPAY ==
[2025-11-03 13:36] LABS: COVID-19 CEPHEID 4-PLEX PCR Negative (Negative); Influenza A - CEPHEID Flu A NEGATIVE (NEGATIVE); Influenza B - CEPHEID Flu B NEGATIVE (NEGATIVE)
== END ==
PROVIDERS: PCP Family Medicine; Visit Provider Nurse Practitioner Family
DX: R05.1 Acute cough (principal)
CPT/HCPCS: 87637

== ENCOUNTER → 2025-11-03 11:23 | Outpatient (CLI) | payer OTHER, SELFPAY ==
--- NOTE | 2025-11-03 11:25 | DI.RAD.S_ITS ---
PROCEDURE: XR CHEST 2V INDICATIONS: Cough TECHNIQUE: 2 views of the chest were acquired. COMPARISON: None. FINDINGS: Surgical changes and devices: None. Lungs and pleura: Lungs are clear. No pleural effusions or pneumothorax. Mediastinum: Mediastinal contours are normal. Heart size is normal. Bones and chest wall: No suspicious bony abnormalities. Pectus excavatum deformity is noted on the lateral view Soft tissues appear unremarkable. IMPRESSION: Clear lungs, without infiltrates. Additional findings: Pectus excavatum deformity Dictated by: Ney Nogueira M.D. on 11/03/2025 at 11:23 Approved by: Ney Nogueira M.D. on 11/03/2025 at 11:24
== END ==
PROVIDERS: PCP Family Medicine; Referring Provider Nurse Practitioner Family; Visit Provider Nurse Practitioner Family
DX: R05.9 Cough, unspecified (principal); M95.4 Acquired deformity of chest and rib
CPT/HCPCS: 71046